=== PATIENT | male | born 1975 | race Caucasian/White ===

== ENCOUNTER 2018-07-30 11:50 | Emergency (ER) | payer MEDICAID ==
[~2018-07-30] VITALS: Ht 180.3 cm; Wt 99.0 kg
[2018-07-30 12:20] VITALS: BP 179/98
[2018-07-30] MEDS ORDERED: HYDROcodone/APAP 5/325 TABLET PO ONE (13:00)
[2018-07-30] MEDS ORDERED: HYDROcodone/APAP 5/325 TABLET ONE (13:02)
== END 2018-07-30 13:19 | disposition home or self-care (01) ==
LOC: ED 12:38
DX: H66.001 Acute suppurative otitis media without spontaneous rupture of ear drum, right ear (principal); H60.11 Cellulitis of right external ear; I10 Essential (primary) hypertension; E11.9 Type 2 diabetes mellitus without complications; F17.200 Nicotine dependence, unspecified, uncomplicated
CPT/HCPCS: 99283

== ENCOUNTER 2018-12-27 13:11 | Emergency (ER) | payer MEDICAID ==
[~2018-12-27] VITALS: Ht 180.3 cm; Wt 98.7 kg
[2018-12-27 13:25] VITALS: BP 152/102
== END 2018-12-27 15:19 | disposition home or self-care (01) ==
LOC: ED 15:13
DX: H66.91 Otitis media, unspecified, right ear (principal); E11.9 Type 2 diabetes mellitus without complications; I10 Essential (primary) hypertension
CPT/HCPCS: 99283

== ENCOUNTER 2018-12-28 16:52 | Emergency (ER) | payer MEDICAID | END 2018-12-28 17:05 | disposition left against medical advice (07) | LOC: ED 16:59 | DX: H92.09 Otalgia, unspecified ear (principal) | CPT/HCPCS: 99281 ==

== ENCOUNTER 2019-05-28 13:26 | Emergency (ER) | payer MEDICAID ==
[~2019-05-28] VITALS: Ht 180.3 cm; Wt 99.7 kg
[2019-05-28 13:46] VITALS: BP 129/85
== END 2019-05-28 14:52 | disposition home or self-care (01) ==
LOC: ED 14:00
DX: H66.001 Acute suppurative otitis media without spontaneous rupture of ear drum, right ear (principal); E11.22 Type 2 diabetes mellitus with diabetic chronic kidney disease; I12.9 Hypertensive chronic kidney disease with stage 1 through stage 4 chronic kidney disease, or unspecified chronic kidney disease; N18.9 Chronic kidney disease, unspecified; Z79.4 Long term (current) use of insulin
CPT/HCPCS: 99283

== ENCOUNTER 2019-06-27 03:32 | Emergency (ER) | payer MEDICAID | END 2019-06-27 04:15 | disposition left against medical advice (07) | LOC: ED 03:32 | DX: Z53.21 Procedure and treatment not carried out due to patient leaving prior to being seen by health care provider (principal) ==

== ENCOUNTER 2019-07-15 00:09 | Emergency (ER) | payer MEDICAID ==
[~2019-07-15] VITALS: Ht 180.3 cm; Wt 102.7 kg
[2019-07-15 00:16] VITALS: BP 166/102
[2019-07-15] MEDS ORDERED: HYDROcodone/APAP 5/325 TABLET PO STA (01:13)
[2019-07-15] MEDS ORDERED: HYDROcodone/APAP 5/325 TABLET ONE (01:22)
[2019-07-16] MEDS ORDERED: AMLO10TA8 PO (15:59)
[2019-07-16] MEDS ORDERED: INSU100I17 SQ-INSULIN (16:44)
[2019-07-16] MEDS ORDERED: BUPR300T49 PO (16:44)
[2019-07-16] MEDS ORDERED: LIRA0.6P2 SQ (16:44)
[2019-07-16] MEDS ORDERED: VALS160T3 PO (16:44)
[2019-07-16] MEDS ORDERED: LOSA100T14 PO (16:44)
[2019-07-16] MEDS ORDERED: ATOR40TA78 PO (16:44)
[2019-07-16] MEDS ORDERED: GABA300C10 PO (16:44)
[2019-07-16] MEDS ORDERED: ATOR10TA9 PO (16:44)
[2019-07-16] MEDS ORDERED: POTA20TA89 PO ×2 (16:44)
== END 2019-07-15 01:28 | disposition home or self-care (01) ==
LOC: ED 01:15
DX: H66.004 Acute suppurative otitis media without spontaneous rupture of ear drum, recurrent, right ear (principal); I12.9 Hypertensive chronic kidney disease with stage 1 through stage 4 chronic kidney disease, or unspecified chronic kidney disease; E11.22 Type 2 diabetes mellitus with diabetic chronic kidney disease
CPT/HCPCS: 99283

== ENCOUNTER 2019-07-16 15:11 | Inpatient (IN) | payer MEDICAID ==
[~2019-07-16] VITALS: Ht 180.3 cm; Wt 101.6 kg
--- NOTE | 2019-07-16 15:36 | NUR ---
PT TO ROOM. 10/10 R EAR PAIN. SOME YELLOW CRUSTY DRAINAGE, RED AND SWOLLEN. AFEBRILE. UNABLE TO EAT D/T PAIN. BGL 75 AT [facility], GOT OJ. TEDDY RHODES AT BEDSIDE FOR EVAL.
[2019-07-16] MEDS ORDERED: MORPHINE SULFATE 4 MG/ML, 1ML ONE ×2 (15:54→17:35)
[2019-07-16] MEDS: MORPHINE SULFATE 4 MG/ML, 1ML IVPush PRN ×3 (15:56→19:55)
[2019-07-16] MEDS ORDERED: AMLO10TA8 PO (15:59)
[2019-07-16] MEDS ORDERED: SODIUM CHLORIDE FLUSH 10ML SYR IVF ONE (16:00)
[2019-07-16] MEDS ORDERED: SODIUM CHLORIDE 0.9% 1,000ML IVBOLUS ONE (16:00)
[2019-07-16] MEDS ORDERED: AMLODIPINE 5 MG TABLET ONE (16:03)
[2019-07-16] MEDS ORDERED: AMLODIPINE 5 MG TABLET PO ONE (16:30)
[2019-07-16] MEDS ORDERED: SODIUM CHLORIDE FLUSH 10ML SYR IVF PRN (16:30)
[2019-07-16 16:31] LABS: BASOPHILS % (AUTO) 0 % (0-1); EOSINOPHILS # (AUTO) 0.15 x10^3/uL (0-0.4); EOSINOPHILS % (AUTO) 1 % (1-7); LYMPHOCYTES # (AUTO) 0.46 x10^3/uL (1-3.4); LYMPHOCYTES % (AUTO) 4 % (22-44); MD NO; MEAN CORPUSCULAR HEMOGLOBIN 28.9 pg (27.5-34.5); MEAN CORPUSCULAR HGB CONC 32.7 g/dL (33.2-36.2); MEAN CORPUSCULAR VOLUME 88.3 fL (81-97); MEAN PLATELET VOLUME 7.4 fL (7.4-10.4); MONOCYTES # (AUTO) 0.77 x10^3/uL (0.2-0.8); MONOCYTES % (AUTO) 7 % (2-9); NEUTROPHILS # (AUTO) 10.24 x10^3/uL (1.8-6.8); NEUTROPHILS % (AUTO) 88 % (42-75); PLATELET COUNT 260 x10^3/uL (130-400); RED BLOOD COUNT 5.27 x10^6/uL (4.38-5.82); RED CELL DISTRIBUTION WIDTH 13.9 % (9.4-14.8)
[2019-07-16 16:36] LABS: ALBUMIN 3.7 g/dL (3.4-5.0); ANION GAP 6 mmol/L (5-15); CALCIUM 9.4 mg/dL (8.5-10.1); CHLORIDE 102 mmol/L (98-107)
[2019-07-16 16:38] LABS: CREATININE 2.25 mg/dL (0.7-1.3)
[2019-07-16] MEDS ORDERED: VALS160T3 PO (16:44)
[2019-07-16] MEDS ORDERED: LIRA0.6P2 SQ (16:44)
[2019-07-16] MEDS ORDERED: GABA300C10 PO (16:44)
[2019-07-16] MEDS ORDERED: ATOR40TA78 PO (16:44)
[2019-07-16] MEDS ORDERED: POTA20TA89 PO ×2 (16:44)
[2019-07-16] MEDS ORDERED: INSU100I17 SQ-INSULIN (16:44)
[2019-07-16] MEDS ORDERED: ATOR10TA9 PO (16:44)
[2019-07-16] MEDS ORDERED: BUPR300T49 PO (16:44)
[2019-07-16] MEDS ORDERED: LOSA100T14 PO (16:44)
--- NOTE | 2019-07-16 16:45 | NUR ---
MRI FROM [facility] SHOWS POSSIBLE OSTEO. PROVIDER WAS IN ROOM FOR EVAL. PLAN FOR ADMIT.
[2019-07-16] MEDS: MEROPENEM 1 GM in SODIUM CHLORIDE 0.9% 100 ML IV SCH (17:31)
--- NOTE | 2019-07-16 17:40 | NUR ---
PAIN MEDS PER JUL. ERMD AWARE OF BP. ABX INFUSING. CALL RENETTA. ELA.
--- NOTE | 2019-07-16 17:55 | NUR ---
REPORT TO ROGELIO JOSEPH.
[2019-07-16] MEDS ORDERED: GLUCAGON 1 MG IM PRN (18:30)
[2019-07-16] MEDS ORDERED: DEXTROSE 50%, 50ML SYRINGE IVPush PRN (18:30)
[2019-07-16] MEDS ORDERED: DEXTROSE 4 GM TAB.CHEW PO PRN (18:30)
[2019-07-16] MEDS: OXYcodone 5 MG/5 ML ORAL.SOL UDC PO PRN ×3 (18:31→22:39)
[2019-07-16] MEDS: D5%-LACTATED RINGERS 1,000 ML IV SCH (19:32)
[2019-07-16] MEDS: POTASSIUM CHLORIDE 20 MEQ TAB.ER.PRT PO SCH (19:54)
[2019-07-16] MEDS: GABAPENTIN 300 MG CAPSULE PO SCH (19:54)
[2019-07-16] MEDS: ATORVASTATIN 10 MG TABLET PO SCH (19:54)
[2019-07-16] MEDS: INSULIN LISPRO 100 UNITS/ML, PEN SQ-INSULIN SCH (19:54)
[2019-07-16] MEDS: SODIUM CHLORIDE FLUSH 10ML SYR IVF SCH (19:55)
[2019-07-16 20:04] VITALS: BP 188/106
[2019-07-16] MEDS: INSULIN GLARGINE 100 UNITS/ML, PEN SQ-INSULIN SCH (21:00)
[2019-07-16] MEDS: hydrALAzine 20 MG/ML, 1ML IV PRN (21:20)
[2019-07-16 22:05] VITALS: BP 168/90
[2019-07-17] VITALS (8 sets, daily range): BP systolic 152–207; BP diastolic 81–125
[2019-07-17] MEDS: MEROPENEM 1 GM in SODIUM CHLORIDE 0.9% 100 ML IV SCH ×3 (01:17→17:05)
[2019-07-17] MEDS: MORPHINE SULFATE 4 MG/ML, 1ML IVPush PRN ×3 (01:17→11:31)
[2019-07-17] MEDS: hydrALAzine 20 MG/ML, 1ML IV PRN ×3 (01:26→17:15)
[2019-07-17] MEDS: OXYcodone 5 MG/5 ML ORAL.SOL UDC PO PRN ×4 (02:35→21:11)
[2019-07-17] MEDS: D5%-LACTATED RINGERS 1,000 ML IV SCH ×2 (03:47→15:54)
[2019-07-17] MEDS ORDERED: CIPROFLOXACIN DEXAMETHASONE EAR SUSP 7.5ML RIGHT EAR SCH (07:00)
[2019-07-17] MEDS ORDERED: DEXAMETHASONE 10 MG in SODIUM CHLORIDE 0.9% 50 ML IV SCH (07:00)
[2019-07-17] MEDS: DEXAMETHASONE 4 MG/ML, 1ML IV SCH ×3 (07:43→23:54)
[2019-07-17 08:30] LABS: BASOPHILS # (AUTO) 0.01 x10^3/uL (0-0.1); BASOPHILS % (AUTO) 0 % (0-1); EOSINOPHILS # (AUTO) 0.02 x10^3/uL (0-0.4); EOSINOPHILS % (AUTO) 0 % (1-7); LYMPHOCYTES # (AUTO) 0.54 x10^3/uL (1-3.4); LYMPHOCYTES % (AUTO) 5 % (22-44); MD NO; MEAN CORPUSCULAR HEMOGLOBIN 29.4 pg (27.5-34.5); MEAN CORPUSCULAR HGB CONC 33.5 g/dL (33.2-36.2); MEAN CORPUSCULAR VOLUME 87.6 fL (81-97); MEAN PLATELET VOLUME 7.1 fL (7.4-10.4); MONOCYTES # (AUTO) 0.84 x10^3/uL (0.2-0.8); MONOCYTES % (AUTO) 7 % (2-9); NEUTROPHILS % (AUTO) 88 % (42-75); PLATELET COUNT 255 x10^3/uL (130-400); RED BLOOD COUNT 5.14 x10^6/uL (4.38-5.82)
[2019-07-17 08:33] LABS: HCT (SEDRATE) 45.5 % (39.2-51.8)
[2019-07-17 08:41] LABS: ANION GAP 8 mmol/L (5-15); CALCIUM 9.6 mg/dL (8.5-10.1); CHLORIDE 104 mmol/L (98-107)
[2019-07-17 08:50] LABS: CREATININE 1.97 mg/dL (0.7-1.3)
[2019-07-17] MEDS ORDERED: LABETALOL 5MG/ML, 20ML IVPush ONE ×2 (09:00→11:00)
[2019-07-17] MEDS ORDERED: LORazepam 1MG TABLET PO PRN (09:00)
[2019-07-17] MEDS ORDERED: LORazepam 1MG TABLET PO ONE (09:00)
[2019-07-17] MEDS ORDERED: VALSARTAN 160 MG TABLET PO SCH (09:00)
[2019-07-17] MEDS: BUPROPION SR 150 MG TABLET PO SCH ×2 (09:16→21:12)
[2019-07-17] MEDS: INSULIN LISPRO 100 UNITS/ML, PEN SQ-INSULIN SCH ×4 (09:16→21:32)
[2019-07-17] MEDS: GABAPENTIN 300 MG CAPSULE PO SCH ×2 (09:17→21:12)
[2019-07-17] MEDS: POTASSIUM CHLORIDE 20 MEQ TAB.ER.PRT PO SCH ×2 (09:17→21:12)
[2019-07-17] MEDS: AMLODIPINE 10 MG TAB PO SCH (09:17)
[2019-07-17] MEDS: SODIUM CHLORIDE FLUSH 10ML SYR IVF SCH ×2 (09:18→21:14)
[2019-07-17] MEDS: CIPROFLOXACIN DEXAMETHASONE EAR SUSP 7.5ML RIGHT EAR SCH ×3 (11:29→21:11)
[2019-07-17] MEDS: HEPARIN 5,000 UNITS/ML, 1ML SQ SCH ×2 (13:00→21:13)
[2019-07-17] MEDS ORDERED: POTASSIUM CHLORIDE 20 MEQ PACKET PO SCH (17:00)
[2019-07-17 17:43] LABS: AMPHETAMINE SCREEN, URINE Negative (Negative); BARBITURATE SCREEN, URINE Negative (Negative); BENZODIAZEPINE SCREEN, URINE Negative (Negative); CANNABINOID SCREEN, URINE Positive (Negative); COCAINE SCREEN, URINE Negative (Negative); METHADONE SCREEN, URINE Negative (Negative); OPIATE SCREEN, URINE Positive (Negative)
[2019-07-17] MEDS: ATORVASTATIN 10 MG TABLET PO SCH (21:12)
[2019-07-17] MEDS: INSULIN GLARGINE 100 UNITS/ML, PEN SQ-INSULIN SCH (21:31)
[2019-07-18 00:01] VITALS: BP 158/92
[2019-07-18] MEDS: MEROPENEM 1 GM in SODIUM CHLORIDE 0.9% 100 ML IV SCH ×2 (00:58→08:53)
[2019-07-18] MEDS: HEPARIN 5,000 UNITS/ML, 1ML SQ SCH ×2 (05:00→13:00)
[2019-07-18] MEDS: D5%-LACTATED RINGERS 1,000 ML IV SCH (05:00)
[2019-07-18] MEDS: CIPROFLOXACIN DEXAMETHASONE EAR SUSP 7.5ML RIGHT EAR SCH ×3 (05:00→16:25)
[2019-07-18 05:04] VITALS: BP 165/102
[2019-07-18 05:07] VITALS: BP 144/102
[2019-07-18 05:39] LABS: BASOPHILS # (AUTO) 0.02 x10^3/uL (0-0.1); BASOPHILS % (AUTO) 0 % (0-1); EOSINOPHILS % (AUTO) 0 % (1-7); LYMPHOCYTES # (AUTO) 0.47 x10^3/uL (1-3.4); LYMPHOCYTES % (AUTO) 4 % (22-44); MD NO; MEAN CORPUSCULAR HEMOGLOBIN 28.9 pg (27.5-34.5); MEAN CORPUSCULAR HGB CONC 33.1 g/dL (33.2-36.2); MEAN CORPUSCULAR VOLUME 87.5 fL (81-97); MEAN PLATELET VOLUME 7.5 fL (7.4-10.4); MONOCYTES # (AUTO) 0.25 x10^3/uL (0.2-0.8); MONOCYTES % (AUTO) 2 % (2-9); NEUTROPHILS # (AUTO) 11.24 x10^3/uL (1.8-6.8); NEUTROPHILS % (AUTO) 94 % (42-75); PLATELET COUNT 274 x10^3/uL (130-400); RED BLOOD COUNT 5.07 x10^6/uL (4.38-5.82); RED CELL DISTRIBUTION WIDTH 13.5 % (9.4-14.8)
[2019-07-18 05:50] LABS: ANION GAP 7 mmol/L (5-15); CALCIUM 9.7 mg/dL (8.5-10.1); CHLORIDE 107 mmol/L (98-107); CREATININE 2.24 mg/dL (0.7-1.3)
[2019-07-18 08:49] VITALS: BP 167/99
[2019-07-18] MEDS: BUPROPION SR 150 MG TABLET PO SCH (08:54)
[2019-07-18] MEDS: AMLODIPINE 10 MG TAB PO SCH (08:55)
[2019-07-18] MEDS: POTASSIUM CHLORIDE 20 MEQ TAB.ER.PRT PO SCH (08:55)
[2019-07-18] MEDS: GABAPENTIN 300 MG CAPSULE PO SCH (08:55)
[2019-07-18] MEDS: SODIUM CHLORIDE FLUSH 10ML SYR IVF SCH (08:57)
[2019-07-18] MEDS ORDERED: VALSARTAN 160 MG TABLET PO SCH (09:00)
[2019-07-18] MEDS ORDERED: VALSARTAN 320 MG TABLET PO SCH (09:00)
[2019-07-18] MEDS: INSULIN LISPRO 100 UNITS/ML, PEN SQ-INSULIN SCH ×3 (09:09→16:23)
[2019-07-18] MEDS ORDERED: INSULIN LISPRO 100 UNIT/ML, 3ML VIAL IVPush SCH (11:00)
[2019-07-18] MEDS ORDERED: HYDR-3341 PO (15:05)
[2019-07-18] MEDS ORDERED: CIPR250T27 PO (15:05)
[2019-07-18] MEDS ORDERED: CIPR7.5D RIGHT EAR (15:05)
[2019-07-18 15:38] VITALS: BP 152/99
[2019-07-18] MEDS ORDERED: INSULIN LISPRO 100 UNIT/ML, 3ML VIAL SQ-INSULIN SCH (16:00)
== END 2019-07-18 17:00 | disposition home or self-care (01) | DRG 154 ==
LOC: ED 16:45 → EDIP 17:35 → 4WST 18:11 → DCLOUNGE 07-18 16:53
PROVIDERS: ADMIT Family Medicine; ATTEND Family Medicine
DX: H60.20 Malignant otitis externa, unspecified ear (principal); N18.6 End stage renal disease; H70.001 Acute mastoiditis without complications, right ear; E11.22 Type 2 diabetes mellitus with diabetic chronic kidney disease; H60.92 Unspecified otitis externa, left ear; H60.11 Cellulitis of right external ear; F41.9 Anxiety disorder, unspecified; H60.501 Unspecified acute noninfective otitis externa, right ear; I16.0 Hypertensive urgency; Z79.4 Long term (current) use of insulin; Z87.891 Personal history of nicotine dependence; Z90.49 Acquired absence of other specified parts of digestive tract
CPT/HCPCS: 36415; 99285; J7121; 80048; 80307; 82040; 82947; 82962; 83605; 85025; 85651; 86140; 87040; G0378; J1100; J1644; J2185; J0360; J1815; J1817; J2270; J7030

== ENCOUNTER 2020-01-17 10:46 | Emergency (ER) | payer MEDICAID ==
[~2020-01-17] VITALS: Ht 180.3 cm; Wt 105.4 kg
[~2020-01-17 10:46] MED LIST: AMLO10TA8 PO; ATOR10TA9 PO; ATOR40TA78 PO; BUPR300T49 PO; CIPR250T27 PO; CIPR7.5D RIGHT EAR; GABA300C10 PO; HYDR-3341 PO; INSU100I17 SQ-INSULIN; LIRA0.6P2 SQ; LOSA100T14 PO; POTA20TA89 PO; VALS160T3 PO
[2020-01-17 10:52] VITALS: BP 127/79
== END 2020-01-17 11:25 | disposition home or self-care (01) ==
LOC: ED 11:12
DX: H66.001 Acute suppurative otitis media without spontaneous rupture of ear drum, right ear (principal); E11.9 Type 2 diabetes mellitus without complications; I10 Essential (primary) hypertension; Z90.49 Acquired absence of other specified parts of digestive tract; Z87.891 Personal history of nicotine dependence
CPT/HCPCS: 99283

== ENCOUNTER 2020-02-09 01:11 | Inpatient (IN) | payer MEDICAID ==
[~2020-02-09] VITALS: Ht 180.3 cm; Wt 103.2 kg
[2020-02-09] MEDS ORDERED: SODIUM CHLORIDE 0.9% 1,000ML IVBOLUS ONE (01:30)
[2020-02-09] MEDS ORDERED: ONDANSETRON 2MG/ML, 2ML IVPush ONE (01:30)
[2020-02-09] MEDS ORDERED: MORPHINE SULFATE 4 MG/ML, 1ML IVPush PRN (01:30)
--- NOTE | 2020-02-09 01:32 | NUR ---
BIB EMS FROM HOME FOR N/V X3 DAYS PT STS HE HAS BEEN TAKING HIS INSULIN DESPITE POOR ORAL INTAKE. PER EMS PT HYPOTENSIVE WITH FSBS 60. PT ARRIVES WITH FLUIDS INFUSING FSBS HERE 83. DOMITILA, SR 80'S. PT CONNECTED TO ALL MONITORING
[2020-02-09 01:36] LABS: BASOPHILS # (AUTO) 0.03 x10^3/uL (0-0.1); BASOPHILS % (AUTO) 0 % (0-1); EOSINOPHILS # (AUTO) 0.13 x10^3/uL (0-0.4); EOSINOPHILS % (AUTO) 1 % (1-7); LYMPHOCYTES # (AUTO) 1.04 x10^3/uL (1-3.4); LYMPHOCYTES % (AUTO) 11 % (22-44); MD NO; MEAN CORPUSCULAR HEMOGLOBIN 26.9 pg (27.5-34.5); MEAN CORPUSCULAR HGB CONC 33.2 g/dL (33.2-36.2); MEAN PLATELET VOLUME 7.2 fL (7.4-10.4); MONOCYTES # (AUTO) 0.66 x10^3/uL (0.2-0.8); MONOCYTES % (AUTO) 7 % (2-9); NEUTROPHILS % (AUTO) 80 % (42-75); PLATELET COUNT 339 x10^3/uL (130-400); RED BLOOD COUNT 5.69 x10^6/uL (4.38-5.82); RED CELL DISTRIBUTION WIDTH 13.8 % (9.4-14.8)
[2020-02-09 01:47] LABS: ALANINE AMINOTRANSFERASE 24 U/L (12-78); ALBUMIN 3.5 g/dL (3.4-5.0); ANION GAP 10 mmol/L (5-15); CALCIUM 8.7 mg/dL (8.5-10.1); CHLORIDE 108 mmol/L (98-107)
[2020-02-09 01:50] LABS: ALKALINE PHOSPHATASE 114 U/L (45-117); BILIRUBIN,TOTAL 0.3 mg/dL (0.2-1.0); TOTAL PROTEIN 6.8 g/dL (6.4-8.2)
--- NOTE | 2020-02-09 02:00 | NUR ---
PT ATTEMPTED TO PROVIDE URINE SAMPLE BUT UNABLE TO AT THIS TIME
--- NOTE | 2020-02-09 02:40 | NUR ---
PT REMOVED BP CUFF STS IT IS UNCOMFORTABLE, PT EDUCATED THAT WE WILL NEED TO CHECK BP DURING HIS STAY. PT STS HE WILL AGREE TO BP CHECK BUT NOT KEEP CUFF ON FOR LONG PERIOD OF TIME HE FEELS ANXIOUS.
[2020-02-09] MEDS ORDERED: D5%-0.45% NACL 1,000 ML IV SCH (03:00)
--- NOTE | 2020-02-09 03:20 | NUR ---
FLUIDS STARTED PER DR WEATHERS AT THIS TIME.
--- NOTE | 2020-02-09 03:35 | NUR ---
[facility] AT BEDSIDE FOR ADMIT
--- NOTE | 2020-02-09 03:54 | NUR ---
PT RESTING ON GURNEY AWAITING ROOM UPSTAIRS REMAINS AT BEDSIDE
[2020-02-09] MEDS ORDERED: ACETAMINOPHEN 325 MG TABLET PO PRN (04:00)
[2020-02-09] MEDS ORDERED: ONDANSETRON 2MG/ML, 2ML IVPush PRN (04:00)
[2020-02-09] MEDS ORDERED: LABETALOL 5MG/ML, 20ML IVPush PRN (04:00)
[2020-02-09] MEDS ORDERED: DEXTROSE 50%, 50ML SYRINGE IVPush PRN (04:00)
[2020-02-09] MEDS ORDERED: GLUCAGON 1 MG IM PRN (04:00)
[2020-02-09] MEDS ORDERED: hydrALAzine 20 MG/ML, 1ML IVPush PRN (04:00)
[2020-02-09] MEDS ORDERED: ONDANSETRON ODT 4 MG PO PRN (04:00)
[2020-02-09] MEDS ORDERED: MAALOX/HYOSCYAMINE/LIDOCAINE 45 ML BTL PO ONE (04:00)
[2020-02-09] MEDS ORDERED: D5%-0.9% NACL 1,000 ML IV SCH (04:00)
[2020-02-09] MEDS ORDERED: TRAZODONE 50MG TABLET PO PRN (04:00)
[2020-02-09] MEDS ORDERED: BISACODYL 10 MG SUPP PR PRN (04:00)
[2020-02-09] MEDS ORDERED: POLYETHYLENE GLYCOL 17 GM PACKET PO PRN (04:00)
[2020-02-09] MEDS ORDERED: DEXTROSE 4 GM TAB.CHEW PO PRN (04:00)
[2020-02-09] MEDS ORDERED: DOCUSATE 100 MG CAPSULE PO PRN (04:00)
[2020-02-09] MEDS ORDERED: morphine SULFATE 10 MG/ML, 1ML IVPush PRN (04:00)
[2020-02-09] MEDS ORDERED: OMEPRAZOLE 20 MG CAPSULE.DR PO ONE (04:00)
[2020-02-09 04:30] VITALS: BP 103/63
--- NOTE | 2020-02-09 04:30 | NUR ---
REPORT TO GARCIA JOSEPH PT READY FOR TRANSPORT TO [facility]
[2020-02-09] MEDS ORDERED: VALS160T27 PO (05:48)
[2020-02-09] MEDS ORDERED: ESCI10TA PO (05:48)
[2020-02-09] MEDS ORDERED: LANS15CA5 PO (05:48)
[2020-02-09] MEDS ORDERED: TRIA1TAB3 PO (05:48)
[2020-02-09] MEDS ORDERED: HYDR50CA2 PO (05:48)
[2020-02-09] MEDS ORDERED: ALLO100T30 PO (05:48)
[2020-02-09] MEDS ORDERED: INSU100I13 SQ (05:48)
[2020-02-09] MEDS ORDERED: GABAPENTIN 300 MG PO (05:48)
[2020-02-09 06:02] VITALS: BP 106/63
[2020-02-09 08:06] VITALS: BP 94/55
[2020-02-09] MEDS: AMLODIPINE 10 MG TAB PO SCH (08:10)
[2020-02-09] MEDS: SODIUM CHLORIDE FLUSH 10ML SYR IVF SCH ×2 (09:00→20:54)
[2020-02-09] MEDS: GABAPENTIN 300 MG CAPSULE PO SCH ×2 (10:03→20:54)
[2020-02-09] MEDS: HEPARIN 5,000 UNITS/ML, 1ML SQ SCH ×2 (10:03→20:54)
[2020-02-09] MEDS: LACTATED RINGERS 1,000 ML IV SCH ×2 (10:06→18:00)
[2020-02-09 14:10] LABS: CHLORIDE,URINE RANDOM 63 mmol/L; POTASSIUM,URINE RANDOM 46 mmol/L; SODIUM,URINE RANDOM 60 mmol/L
[2020-02-09 14:35] VITALS: BP 120/71
[2020-02-09 15:47] LABS: ANION GAP 9 mmol/L (5-15); CALCIUM 8.3 mg/dL (8.5-10.1); CHLORIDE 106 mmol/L (98-107)
[2020-02-09 15:49] LABS: CREATININE 6.18 mg/dL (0.7-1.3)
[2020-02-09 18:57] VITALS: BP 103/67
[2020-02-09 20:53] VITALS: BP 127/66
[2020-02-10 01:26] VITALS: BP 120/75
[2020-02-10] MEDS: LACTATED RINGERS 1,000 ML IV SCH ×3 (03:36→20:00)
[2020-02-10 05:34] LABS: ALBUMIN 3.2 g/dL (3.4-5.0); CALCIUM 8.4 mg/dL (8.5-10.1); CHLORIDE 107 mmol/L (98-107)
[2020-02-10 05:39] LABS: ALANINE AMINOTRANSFERASE 22 U/L (12-78); ALKALINE PHOSPHATASE 104 U/L (45-117); ANION GAP 7 mmol/L (5-15); BILIRUBIN,TOTAL 0.3 mg/dL (0.2-1.0); CREATININE 5.14 mg/dL (0.7-1.3)
[2020-02-10 05:47] LABS: BASOPHILS # (AUTO) 0.03 x10^3/uL (0-0.1); BASOPHILS % (AUTO) 1 % (0-1); EOSINOPHILS # (AUTO) 0.24 x10^3/uL (0-0.4); EOSINOPHILS % (AUTO) 4 % (1-7); LYMPHOCYTES # (AUTO) 1.57 x10^3/uL (1-3.4); LYMPHOCYTES % (AUTO) 24 % (22-44); MD NO; MEAN CORPUSCULAR HEMOGLOBIN 26.7 pg (27.5-34.5); MEAN CORPUSCULAR HGB CONC 32.5 g/dL (33.2-36.2); MEAN PLATELET VOLUME 7.6 fL (7.4-10.4); MONOCYTES # (AUTO) 0.59 x10^3/uL (0.2-0.8); MONOCYTES % (AUTO) 9 % (2-9); NEUTROPHILS # (AUTO) 4.15 x10^3/uL (1.8-6.8); NEUTROPHILS % (AUTO) 63 % (42-75); PLATELET COUNT 224 x10^3/uL (130-400); RED BLOOD COUNT 4.72 x10^6/uL (4.38-5.82); RED CELL DISTRIBUTION WIDTH 13.9 % (9.4-14.8)
[2020-02-10] MEDS: HEPARIN 5,000 UNITS/ML, 1ML SQ SCH ×3 (06:16→20:46)
[2020-02-10] MEDS ORDERED: POTASSIUM CHLORIDE 20 MEQ TAB.ER.PRT PO ONE (06:30)
[2020-02-10] MEDS: GABAPENTIN 300 MG CAPSULE PO SCH ×2 (08:26→20:46)
[2020-02-10] MEDS: AMLODIPINE 10 MG TAB PO SCH (08:26)
[2020-02-10] MEDS: SODIUM CHLORIDE FLUSH 10ML SYR IVF SCH ×2 (08:27→20:46)
[2020-02-10 09:23] VITALS: BP 151/93
[2020-02-10 15:59] VITALS: BP 141/87
[2020-02-10] MEDS ORDERED: POTASSIUM CHLORIDE 20 MEQ TAB.ER.PRT PO SCH (17:00)
[2020-02-10 18:58] VITALS: BP 132/84
[2020-02-10 20:44] VITALS: BP 150/87
[2020-02-11 00:02] VITALS: BP 162/76
[2020-02-11 05:12] LABS: BASOPHILS # (AUTO) 0.03 x10^3/uL (0-0.1); BASOPHILS % (AUTO) 1 % (0-1); EOSINOPHILS # (AUTO) 0.14 x10^3/uL (0-0.4); EOSINOPHILS % (AUTO) 3 % (1-7); LYMPHOCYTES % (AUTO) 28 % (22-44); MD NO; MEAN CORPUSCULAR HGB CONC 34.5 g/dL (33.2-36.2); MEAN PLATELET VOLUME 7.5 fL (7.4-10.4); MONOCYTES # (AUTO) 0.51 x10^3/uL (0.2-0.8); MONOCYTES % (AUTO) 10 % (2-9); NEUTROPHILS # (AUTO) 3.17 x10^3/uL (1.8-6.8); NEUTROPHILS % (AUTO) 59 % (42-75); PLATELET COUNT 240 x10^3/uL (130-400); RED BLOOD COUNT 4.68 x10^6/uL (4.38-5.82); RED CELL DISTRIBUTION WIDTH 13.6 % (9.4-14.8)
[2020-02-11] MEDS: LACTATED RINGERS 1,000 ML IV SCH ×3 (05:13→21:27)
[2020-02-11] MEDS: HEPARIN 5,000 UNITS/ML, 1ML SQ SCH ×3 (05:13→21:29)
[2020-02-11 05:26] LABS: ANION GAP 7 mmol/L (5-15); CALCIUM 8.2 mg/dL (8.5-10.1); CHLORIDE 105 mmol/L (98-107)
[2020-02-11 05:29] LABS: CREATININE 3.48 mg/dL (0.7-1.3)
[2020-02-11 07:03] VITALS: BP 171/101
[2020-02-11] MEDS: POTASSIUM CHLORIDE 20 MEQ TAB.ER.PRT PO SCH ×2 (07:24→16:26)
[2020-02-11] MEDS: GABAPENTIN 300 MG CAPSULE PO SCH ×2 (07:24→21:29)
[2020-02-11] MEDS: AMLODIPINE 10 MG TAB PO SCH (07:25)
[2020-02-11] MEDS: SODIUM CHLORIDE FLUSH 10ML SYR IVF SCH ×2 (09:00→21:29)
[2020-02-11 14:19] VITALS: BP 168/101
[2020-02-11] MEDS ORDERED: POTASSIUM CHLORIDE 20 MEQ TAB.ER.PRT PO SCH (17:00)
[2020-02-11] MEDS: METOPROLOL TARTRATE 25 MG TAB PO SCH (18:12)
[2020-02-11 18:36] VITALS: BP 159/97
[2020-02-12 01:13] VITALS: BP 160/97
[2020-02-12 05:24] LABS: ANION GAP 7 mmol/L (5-15); CALCIUM 9.4 mg/dL (8.5-10.1); CHLORIDE 103 mmol/L (98-107); CREATININE 2.59 mg/dL (0.7-1.3)
[2020-02-12] MEDS: HEPARIN 5,000 UNITS/ML, 1ML SQ SCH ×2 (05:47→13:00)
[2020-02-12] MEDS: LACTATED RINGERS 1,000 ML IV SCH (05:47)
[2020-02-12] MEDS: METOPROLOL TARTRATE 25 MG TAB PO SCH (05:48)
[2020-02-12 07:13] VITALS: BP 152/95
[2020-02-12] MEDS: AMLODIPINE 10 MG TAB PO SCH (08:01)
[2020-02-12] MEDS: POTASSIUM CHLORIDE 20 MEQ TAB.ER.PRT PO SCH ×2 (08:01→16:07)
[2020-02-12] MEDS: GABAPENTIN 300 MG CAPSULE PO SCH (08:01)
[2020-02-12] MEDS: SODIUM CHLORIDE FLUSH 10ML SYR IVF SCH (08:02)
[2020-02-12] MEDS ORDERED: LOSARTAN 50MG TABLET PO SCH (09:30)
[2020-02-12 15:24] VITALS: BP 161/120
== END 2020-02-12 16:10 | disposition home or self-care (01) | DRG 641 ==
LOC: ED 03:23 → EDIP 03:39 → 3N 04:55
PROVIDERS: ADMIT Family Medicine; ATTEND Family Medicine
DX: E86.0 Dehydration (principal); N17.9 Acute kidney failure, unspecified; N18.4 Chronic kidney disease, stage 4 (severe); E11.43 Type 2 diabetes mellitus with diabetic autonomic (poly)neuropathy; E11.649 Type 2 diabetes mellitus with hypoglycemia without coma; I12.9 Hypertensive chronic kidney disease with stage 1 through stage 4 chronic kidney disease, or unspecified chronic kidney disease; K21.9 Gastro-esophageal reflux disease without esophagitis; E11.22 Type 2 diabetes mellitus with diabetic chronic kidney disease; E11.40 Type 2 diabetes mellitus with diabetic neuropathy, unspecified; E78.5 Hyperlipidemia, unspecified; E87.6 Hypokalemia; F12.90 Cannabis use, unspecified, uncomplicated; F41.9 Anxiety disorder, unspecified; J45.909 Unspecified asthma, uncomplicated; M10.9 Gout, unspecified; Z87.891 Personal history of nicotine dependence; Z90.49 Acquired absence of other specified parts of digestive tract; E66.9 Obesity, unspecified; F32.9 Major depressive disorder, single episode, unspecified; K31.84 Gastroparesis
CPT/HCPCS: 36415; 74176; 76770; 80048; 80053; 82306; 82436; 82570; 82962; 83036; 83690; 83735; 84100; 84133; 84156; 84300; 85025; 99285; G0378; J1644; J7030; J7120; Q0177

== ENCOUNTER 2020-07-21 10:03 | Outpatient (CLI) | payer MEDICAID ==
[~2020-07-21 10:03] MED LIST changes: +ALLO100T30 PO; +AMLO-211 PO; -AMLO10TA8 PO; +ESCI10TA97 PO; +GABAPENTIN 300 MG PO; +HYDR50CA2 PO; +INSU100I13 SQ; +LANS15CA5 PO; +TRIA1TAB3 PO; +VALS160T27 PO
== END 2020-07-21 23:59 | disposition home or self-care (01) ==
LOC: RAD 10:03
PROVIDERS: ATTEND Internal Medicine Gastroenterology
DX: T18.2XXA Foreign body in stomach, initial encounter (principal); R11.2 Nausea with vomiting, unspecified; K31.89 Other diseases of stomach and duodenum; K20.80 Other esophagitis without bleeding; R68.81 Early satiety
CPT/HCPCS: 78264; 82962; A9541

== ENCOUNTER 2020-08-03 23:54 | Inpatient (IN) | payer MEDICAID ==
[~2020-08-03] VITALS: Ht 182.9 cm; Wt 103.9 kg
[~2020-08-03 23:54] MED LIST changes: +ETOMIDATE 20 MG/10 ML ONE; +PROPOFOL 10 MG/ML, 100ML IV ONE; +ROCURONIUM 10MG/ML,5ML ONE
--- NOTE | 2020-08-04 00:04 | NUR ---
FLOAT RN: 20 ETIMODATE AND 60 FRANSICO GIVEN. CODE CALLED PT LOST PULSES -SEE CODE BLUE SHEET.
--- NOTE | 2020-08-04 00:06 | NUR ---
Code Mak called @ 1039
--- NOTE | 2020-08-04 00:20 | NUR ---
BLOOD CULTURES X 2 DRAWN AT 0020 PRIOR TO ANTIBIOTIC THERAPY INITIATION.
[2020-08-04 00:21] LABS: MEAN CORPUSCULAR HEMOGLOBIN 28.2 pg (27.5-34.5); MEAN CORPUSCULAR HGB CONC 32.6 g/dL (33.2-36.2); MEAN PLATELET VOLUME 7.4 fL (7.4-10.4); PLATELET COUNT 277 x10^3/uL (130-400); RED BLOOD COUNT 4.85 x10^6/uL (4.38-5.82); RED CELL DISTRIBUTION WIDTH 16.3 % (9.4-14.8)
[2020-08-04] MEDS ORDERED: GABA600T7 PO (00:23)
[2020-08-04] MEDS ORDERED: LANS15CA5 PO (00:23)
[2020-08-04] MEDS ORDERED: ATOR-2 PO (00:23)
[2020-08-04] MEDS ORDERED: METO25TA35 PO (00:23)
[2020-08-04] MEDS ORDERED: BUPR150T73 PO (00:23)
[2020-08-04] MEDS ORDERED: POTA10TA6 PO (00:23)
[2020-08-04] MEDS ORDERED: ALLO300T PO (00:23)
[2020-08-04] MEDS ORDERED: AMLO-211 PO (00:23)
[2020-08-04 00:30] LABS: ALANINE AMINOTRANSFERASE 63 U/L (12-78); ALBUMIN 3.6 g/dL (3.4-5.0); ANION GAP 10 mmol/L (5-15); CALCIUM 8.1 mg/dL (8.5-10.1); CHLORIDE 112 mmol/L (98-107); CREATININE 2.71 mg/dL (0.7-1.3)
[2020-08-04 00:35] LABS: ALKALINE PHOSPHATASE 163 U/L (45-117); BILIRUBIN,TOTAL 0.4 mg/dL (0.2-1.0); TOTAL PROTEIN 6.9 g/dL (6.4-8.2); TROPONIN I < 0.015 ng/mL (0.000-0.045)
[2020-08-04] MEDS ORDERED: PIPERACILLIN/TAZO/PMX 3.375GM 50 ML ONE (00:38)
[2020-08-04] MEDS: PROPOFOL 100 ML IV PRN ×8 (00:49→21:59)
[2020-08-04 00:52] LABS: MD YES
[2020-08-04 00:55] LABS: ANISOCYTOSIS 1+; BAND#(MANUAL) 0.19 x10^3/uL; BANDS%(MANUAL) 1 % (0-7); BASOS#(MANUAL) 0.19 x10^3/uL (0-0.1); BASOS% (MANUAL) 1 % (0-1); ECHINOCYTES 1+; EOS#(MANUAL) 0.38 x10^3/uL (0.0-0.4); EOS% (MANUAL) 2 % (1-7); LYMPH#(MANUAL) 3.44 x10^3/uL (1-3.4); LYMPHS% (MANUAL) 18 % (22-44); MONOS#(MANUAL) 1.72 x10^3/uL (0.3-2.7); MONOS% (MANUAL) 9 % (2-9); OVALOCYTES 1+; REACTIVE LYMPHS # (MANUAL) 0.38 x10^3/uL (0-0); REACTIVE LYMPHS % (MANUAL) 2 % (0-0); SEGS% (MANUAL) 67 % (42-75)
[2020-08-04 00:56] LABS: <PLATELET ESTIMATE> ADEQUATE; <PLT MORPHOLOGY> NORMAL PLT MORPH; PMNS WITH VACUOLES 1+
[2020-08-04 00:57] LABS: MICROSCOPIC INDICATED
[2020-08-04] MEDS ORDERED: PLEASE ENTER ALLERGIES MC SCH (01:00)
[2020-08-04] MEDS ORDERED: VANCOMYCIN 2,500 MG in SODIUM CHLORIDE 0.9% 500 ML IV ONE (01:00)
[2020-08-04] MEDS ORDERED: ETOMIDATE 20 MG/10 ML IVPush ONE (01:00)
[2020-08-04] MEDS ORDERED: VANCOMYCIN PER PHARMACY MC ONE (01:00)
[2020-08-04] MEDS ORDERED: ROCURONIUM 10 MG/ML,10ML IVPush ONE (01:00)
[2020-08-04] MEDS ORDERED: PIPERACILLIN/TAZO/PMX 3.375GM 50 ML IVPB ONE (01:00)
--- NOTE | 2020-08-04 01:14 | NUR ---
PATIENT IN STABLE CONDITION. VITAL SIGNS STABLE. PATIENT RESPONDING TO SEDATION DRIP WELL. NO CHANGE IN PATIETN STATUS AT THIS TIME. PATIENT IS ONE-ON-ONE CARE FROM DOOR TIME.
[2020-08-04] MEDS ORDERED: SODIUM CHLORIDE 0.9% 1,000ML IVBOLUS ONE ×3 (01:30→10:00)
[2020-08-04] MEDS ORDERED: OMNIPAQUE 350 MG/ML, 100ML BOTTLE ONE (01:33)
--- NOTE | 2020-08-04 01:36 | NUR ---
SEDATION MEDICATION INCREASED RELATED TO INCREASE IN VITAL SIGNS, INDICATING PT IS UNCOMFORTABLE. BLOOD PRESSURE HAS INCREASED, WILL TREND DOWNWARD WITH IMPROVED COMFORT LEVEL
--- NOTE | 2020-08-04 01:54 | NUR ---
1000ML OF CLEAR YELLOW URINE EMPTIED FROM INDWELLING URINARY CATH
[2020-08-04 02:01] LABS: SALICYLATE LEVEL 2.4 mg/dL (2.8-20.0)
[2020-08-04 02:03] LABS: AMPHETAMINE SCREEN, URINE Positive (Negative); BARBITURATE SCREEN, URINE Negative (Negative); BENZODIAZEPINE SCREEN, URINE Negative (Negative); CANNABINOID SCREEN, URINE Positive (Negative); COCAINE SCREEN, URINE Negative (Negative); METHADONE SCREEN, URINE Negative (Negative); OPIATE SCREEN, URINE Negative (Negative)
--- NOTE | 2020-08-04 02:15 | NUR ---
TITRATING SEDATION DRIP ACCORDING TO POLICY
[2020-08-04] MEDS ORDERED: FENTANYL PF 100 MCG/2ML ONE ×2 (02:24→02:44)
--- NOTE | 2020-08-04 02:27 | NUR ---
PATIENT IS NOT ADEQUATELY SEDATED AT THIS POINT. PATIENT'S VITAL SIGNS AND SPONTANIOUS MOVEMENTS INDICATE THAT PATIENT REQUIRES ADDITIONAL SEDATION MEDICATION. PATIENT GIVEN IVP FENTANYL 50MCG PER VERBAL ORDER MD LEVI. PATIENT'S VITAL SIGNS ARE STABLE. PROPOFOL DRIP IS CURRENTLY BEING TITRATED TO IMPROVE OPTIMAL SEDATION OUTCOMES. WILL CONTINUE TO MONITOR PATIENT'S FAMILY IS AT BEDSIDE WITH PATIENT. UPDATED ON PLAN OF CARE. [facility] ADMITTING MD AT BEDSIDE FOR EVALUATION.
[2020-08-04] MEDS ORDERED: LIDOCAINE-MPF 1%, 2ML ENDO PRN (03:00)
[2020-08-04] MEDS ORDERED: FAMOTIDINE 20 MG/2 ML IV SCH (03:00)
[2020-08-04] MEDS: FENTANYL PF 1,000 MCG in SODIUM CHLORIDE 0.9% 80 ML IV PRN ×2 (03:00→20:42)
[2020-08-04] MEDS ORDERED: SENNA/DOCUSATE TABLET NG PRN (03:00)
[2020-08-04] MEDS ORDERED: BISACODYL 10 MG SUPP PR PRN (03:00)
[2020-08-04] MEDS ORDERED: FENTANYL PF 100 MCG/2ML IVPush ONE (03:00)
[2020-08-04] MEDS ORDERED: SENNA 176 MG/5 ML ORAL SOL NG PRN (03:00)
[2020-08-04] MEDS ORDERED: PHARMACY MAY ADJ FOR RENAL FX MC SCH (03:00)
[2020-08-04] MEDS ORDERED: ONDANSETRON 2MG/ML, 2ML IV PRN (03:00)
[2020-08-04] MEDS ORDERED: LACTULOSE 20 GM/30 ML UDC NG PRN (03:00)
--- NOTE | 2020-08-04 03:00 | NUR ---
TITRATION OF SEDATION DRIPS TO IMPROVE BLOOD PRESSURE. WILL CONTINUE TO MONITOR. DEEP SUCTION PERFORMED RELATED TO INCREASE IN ORAL SECRETIONS.
--- NOTE | 2020-08-04 03:26 | NUR ---
PATIENT RESPONDING WELL TO FENTANYL DRIP SEDATION. PATIENT'S FAMILY REMAINS AT BEDSIDE. PATIENT WILL BE TRANSPORTED ONCE BLOOD PRESSURE HAS IMPROVED.
[2020-08-04 03:31] VITALS: BP 108/70
[2020-08-04] MEDS ORDERED: AMIODARONE 50 MG/ML, 3ML ONE (04:11)
[2020-08-04] MEDS ORDERED: EPINEPHRINE SYRINGE 0.1 MG/ML, 10ML ONE (04:11)
[2020-08-04] MEDS ORDERED: KSCALE TO 4.5 IV SCH (05:00)
[2020-08-04] MEDS ORDERED: PHARMACOKINETIC MONITORING MC PRN (05:00)
[2020-08-04] MEDS ORDERED: PIPERACILLIN/TAZO/PMX 2.25GM 50 ML IVPB SCH (05:00)
[2020-08-04] MEDS ORDERED: VANCOMYCIN PER PHARMACY MC PRN (05:00)
[2020-08-04] MEDS: HEPARIN 5,000 UNITS/ML, 1ML SQ SCH ×3 (05:15→20:15)
[2020-08-04 06:44] LABS: TROPONIN I 0.038 ng/mL (0.000-0.045)
[2020-08-04] MEDS ORDERED: INSULIN LISPRO 100 UNITS/ML, PEN SQ-INSULIN SCH (07:00)
[2020-08-04] MEDS: PANTOPRAZOLE 40 MG IV IVPush SCH (08:41)
[2020-08-04] MEDS: INSULIN LISPRO 100 UNITS/ML, PEN SQ-INSULIN SCH ×3 (09:07→20:49)
[2020-08-04] MEDS ORDERED: DEXTROSE 50%, 50ML SYRINGE ONE (09:11)
[2020-08-04] MEDS ORDERED: DEXTROSE 50%, 50ML SYRINGE IVPush ONE (09:30)
[2020-08-04] MEDS ORDERED: DEXTROSE 10% 1,000 ML IV SCH ×2 (09:30→09:31)
[2020-08-04] MEDS: CEFTRIAXONE PMX 2GM/50ML 50 ML IVPB SCH (10:38)
[2020-08-04] MEDS: AZITHROMYCIN 500 MG in SODIUM CHLORIDE 0.9% 250 ML IV SCH (10:39)
[2020-08-04] MEDS: D5%-0.9% NACL 1,000 ML IV SCH ×3 (10:39→22:58)
[2020-08-04] MEDS: ACETYLCYSTEINE 600 MG CAPSULE PO SCH ×2 (10:39→20:16)
--- NOTE | 2020-08-04 12:02 | NUR ---
Tube Feed: Promote: on propofol:80 ml/hr, off propofol: 90 ml/hr Addendum: 08/04/20 at [address] Amended: Links added.
[2020-08-04] MEDS ORDERED: VANCOMYCIN 2,000 MG in SODIUM CHLORIDE 0.9% 500 ML IV SCH (21:00)
[2020-08-05] MEDS: PROPOFOL 100 ML IV PRN ×9 (01:28→23:21)
[2020-08-05] MEDS: INSULIN LISPRO 100 UNITS/ML, PEN SQ-INSULIN SCH ×4 (03:00→21:03)
[2020-08-05] MEDS: HEPARIN 5,000 UNITS/ML, 1ML SQ SCH ×3 (04:01→21:16)
[2020-08-05 04:29] LABS: BASOPHILS % (AUTO) 1 % (0-1); EOSINOPHILS % (AUTO) 3 % (1-7); LYMPHOCYTES % (AUTO) 11 % (22-44); MEAN CORPUSCULAR HEMOGLOBIN 28.8 pg (27.5-34.5); MEAN CORPUSCULAR HGB CONC 33.7 g/dL (33.2-36.2); MEAN PLATELET VOLUME 7.6 fL (7.4-10.4); MONOCYTES % (AUTO) 9 % (2-9); NEUTROPHILS % (AUTO) 76 % (42-75); PLATELET COUNT 156 x10^3/uL (130-400); RED BLOOD COUNT 3.56 x10^6/uL (4.38-5.82); RED CELL DISTRIBUTION WIDTH 16.4 % (9.4-14.8)
[2020-08-05 04:39] LABS: ANION GAP 4 mmol/L (5-15); CALCIUM 7.9 mg/dL (8.5-10.1); CHLORIDE 114 mmol/L (98-107); CREATININE 2.75 mg/dL (0.7-1.3)
[2020-08-05 04:42] LABS: MD NO
[2020-08-05] MEDS: FENTANYL PF 1,000 MCG in SODIUM CHLORIDE 0.9% 80 ML IV PRN ×2 (05:43→17:49)
[2020-08-05] MEDS: D5%-0.9% NACL 1,000 ML IV SCH (05:43)
[2020-08-05] MEDS ORDERED: POTASSIUM CHLORIDE 40 MEQ in SODIUM CHLORIDE 0.9% 500 ML IV ONE (08:30)
[2020-08-05] MEDS ORDERED: FUROSEMIDE 20 MG/2 ML IV ONE (08:30)
[2020-08-05] MEDS ORDERED: POTASSIUM CHLORIDE 10% 40 MEQ/30 ML UDC PO ONE (09:00)
[2020-08-05] MEDS: PANTOPRAZOLE 40 MG IV IVPush SCH (09:23)
[2020-08-05] MEDS: ACETYLCYSTEINE 600 MG CAPSULE PO SCH ×2 (09:23→21:16)
[2020-08-05] MEDS: CEFTRIAXONE PMX 2GM/50ML 50 ML IVPB SCH (10:20)
--- NOTE | 2020-08-05 10:56 | NUR ---
Vital AF advance slowly to goal of 65 ml/hr on propofol, 75 ml/hr off propofol. advance by 10 ml/hr every 10-12 hours as tolerated Addendum: 08/05/20 at [address] Amended: Links added.
[2020-08-05] MEDS: AZITHROMYCIN 500 MG in SODIUM CHLORIDE 0.9% 250 ML IV SCH (11:07)
[2020-08-05 20:30] LABS: BASOPHILS % (AUTO) 1 % (0-1); EOSINOPHILS % (AUTO) 3 % (1-7); LYMPHOCYTES % (AUTO) 13 % (22-44); MEAN CORPUSCULAR HEMOGLOBIN 28.2 pg (27.5-34.5); MEAN CORPUSCULAR HGB CONC 32.9 g/dL (33.2-36.2); MEAN PLATELET VOLUME 7.5 fL (7.4-10.4); MONOCYTES % (AUTO) 9 % (2-9); NEUTROPHILS % (AUTO) 74 % (42-75); PLATELET COUNT 174 x10^3/uL (130-400); RED BLOOD COUNT 3.55 x10^6/uL (4.38-5.82); RED CELL DISTRIBUTION WIDTH 16.9 % (9.4-14.8)
[2020-08-05 20:31] LABS: MD NO
[2020-08-06] MEDS: FENTANYL PF 2,500 MCG in SODIUM CHLORIDE 0.9% 200 ML IV PRN ×2 (01:50→19:00)
[2020-08-06] MEDS: PROPOFOL 100 ML IV PRN ×8 (02:24→23:06)
[2020-08-06] MEDS: INSULIN LISPRO 100 UNITS/ML, PEN SQ-INSULIN SCH ×4 (02:55→20:13)
[2020-08-06 04:29] LABS: BASOPHILS % (AUTO) 1 % (0-1); EOSINOPHILS % (AUTO) 4 % (1-7); LYMPHOCYTES % (AUTO) 13 % (22-44); MEAN CORPUSCULAR HEMOGLOBIN 28.5 pg (27.5-34.5); MEAN CORPUSCULAR HGB CONC 33.1 g/dL (33.2-36.2); MEAN PLATELET VOLUME 7.7 fL (7.4-10.4); MONOCYTES % (AUTO) 9 % (2-9); NEUTROPHILS % (AUTO) 74 % (42-75); PLATELET COUNT 162 x10^3/uL (130-400); RED BLOOD COUNT 3.49 x10^6/uL (4.38-5.82); RED CELL DISTRIBUTION WIDTH 16.5 % (9.4-14.8)
[2020-08-06 04:32] LABS: MD NO
[2020-08-06 04:43] LABS: ALBUMIN 2.6 g/dL (3.4-5.0); ANION GAP 7 mmol/L (5-15); CALCIUM 8.3 mg/dL (8.5-10.1); CHLORIDE 116 mmol/L (98-107)
[2020-08-06 04:46] LABS: ALANINE AMINOTRANSFERASE 38 U/L (12-78); ALKALINE PHOSPHATASE 107 U/L (45-117); BILIRUBIN,TOTAL 0.3 mg/dL (0.2-1.0); CREATININE 2.58 mg/dL (0.7-1.3); TOTAL PROTEIN 5.4 g/dL (6.4-8.2)
[2020-08-06] MEDS: HEPARIN 5,000 UNITS/ML, 1ML SQ SCH ×3 (05:13→20:13)
[2020-08-06] MEDS ORDERED: FUROSEMIDE 20 MG/2 ML ONE (09:38)
[2020-08-06] MEDS: PANTOPRAZOLE 40 MG IV IVPush SCH (09:40)
[2020-08-06] MEDS: ACETYLCYSTEINE 600 MG CAPSULE PO SCH ×2 (09:40→20:13)
[2020-08-06] MEDS ORDERED: FUROSEMIDE 20 MG/2 ML IV ONE (10:00)
[2020-08-06] MEDS ORDERED: POTASSIUM CHLORIDE 20 MEQ PACKET PO ONE (10:00)
[2020-08-06] MEDS: CEFTRIAXONE PMX 2GM/50ML 50 ML IVPB SCH (10:13)
[2020-08-06] MEDS: AZITHROMYCIN 500 MG in SODIUM CHLORIDE 0.9% 250 ML IV SCH (10:13)
[2020-08-06] MEDS ORDERED: MIDAZOLAM 1 MG/ML, 2ML ONE (10:39)
[2020-08-06] MEDS ORDERED: MIDAZOLAM 1 MG/ML, 2ML IVPush ONE (11:00)
[2020-08-06] MEDS ORDERED: ETOMIDATE 20 MG/10 ML ONE (16:04)
[2020-08-07] MEDS: PROPOFOL 100 ML IV PRN ×4 (01:51→11:08)
[2020-08-07] MEDS: INSULIN LISPRO 100 UNITS/ML, PEN SQ-INSULIN SCH ×4 (02:45→20:19)
[2020-08-07 04:37] LABS: BASOPHILS % (AUTO) 1 % (0-1); EOSINOPHILS % (AUTO) 3 % (1-7); LYMPHOCYTES % (AUTO) 9 % (22-44); MEAN CORPUSCULAR HEMOGLOBIN 28.5 pg (27.5-34.5); MEAN CORPUSCULAR HGB CONC 33.2 g/dL (33.2-36.2); MEAN PLATELET VOLUME 7.4 fL (7.4-10.4); MONOCYTES % (AUTO) 9 % (2-9); NEUTROPHILS % (AUTO) 78 % (42-75); PLATELET COUNT 207 x10^3/uL (130-400); RED BLOOD COUNT 3.83 x10^6/uL (4.38-5.82); RED CELL DISTRIBUTION WIDTH 16.4 % (9.4-14.8)
[2020-08-07 04:38] LABS: MD NO
[2020-08-07] MEDS: HEPARIN 5,000 UNITS/ML, 1ML SQ SCH ×3 (04:42→20:19)
[2020-08-07 04:51] LABS: ANION GAP 5 mmol/L (5-15); CALCIUM 8.9 mg/dL (8.5-10.1); CHLORIDE 115 mmol/L (98-107); CREATININE 2.32 mg/dL (0.7-1.3); TRIGLYCERIDES 441 mg/dL (50-200)
[2020-08-07] MEDS: FENTANYL PF 2,500 MCG in SODIUM CHLORIDE 0.9% 200 ML IV PRN ×2 (05:56→17:22)
[2020-08-07] MEDS ORDERED: MIDAZOLAM HCL 50 MG in SODIUM CHLORIDE 0.9% 40 ML IV PRN (08:30)
[2020-08-07] MEDS: PANTOPRAZOLE 40 MG IV IVPush SCH (08:40)
[2020-08-07] MEDS: CEFTRIAXONE PMX 2GM/50ML 50 ML IVPB SCH (08:59)
[2020-08-07] MEDS ORDERED: MIDAZOLAM 1 MG/ML, 5ML IV ONE (09:00)
[2020-08-07] MEDS: RISPERIDONE 0.5 MG TABLET PO SCH ×2 (11:07→20:19)
[2020-08-07] MEDS: VALSARTAN 160 MG TABLET PO SCH (12:19)
[2020-08-07] MEDS: MIDAZOLAM HCL 100 MG in SODIUM CHLORIDE 0.9% 80 ML IV PRN (17:22)
[2020-08-08] MEDS: PROPOFOL 100 ML IV PRN ×3 (01:05→22:55)
[2020-08-08] MEDS: MIDAZOLAM HCL 100 MG in SODIUM CHLORIDE 0.9% 80 ML IV PRN ×4 (01:25→21:41)
[2020-08-08] MEDS: INSULIN LISPRO 100 UNITS/ML, PEN SQ-INSULIN SCH ×4 (03:54→21:46)
[2020-08-08 04:14] LABS: BASOPHILS % (AUTO) 1 % (0-1); EOSINOPHILS % (AUTO) 4 % (1-7); LYMPHOCYTES % (AUTO) 8 % (22-44); MEAN CORPUSCULAR HEMOGLOBIN 28.2 pg (27.5-34.5); MEAN CORPUSCULAR HGB CONC 33.1 g/dL (33.2-36.2); MEAN PLATELET VOLUME 7.3 fL (7.4-10.4); MONOCYTES % (AUTO) 8 % (2-9); NEUTROPHILS % (AUTO) 79 % (42-75); PLATELET COUNT 201 x10^3/uL (130-400); RED BLOOD COUNT 3.61 x10^6/uL (4.38-5.82); RED CELL DISTRIBUTION WIDTH 16.1 % (9.4-14.8)
[2020-08-08 04:15] LABS: MD NO
[2020-08-08 04:22] LABS: ANION GAP 5 mmol/L (5-15); CALCIUM 8.5 mg/dL (8.5-10.1); CHLORIDE 117 mmol/L (98-107); CREATININE 2.17 mg/dL (0.7-1.3)
[2020-08-08] MEDS: FENTANYL PF 2,500 MCG in SODIUM CHLORIDE 0.9% 200 ML IV PRN ×3 (04:31→14:28)
[2020-08-08] MEDS: HEPARIN 5,000 UNITS/ML, 1ML SQ SCH ×3 (05:13→21:41)
[2020-08-08] MEDS: VALSARTAN 160 MG TABLET PO SCH (09:24)
[2020-08-08] MEDS: RISPERIDONE 0.5 MG TABLET PO SCH ×2 (09:25→21:42)
[2020-08-08] MEDS: AMLODIPINE 5 MG TABLET PO SCH (09:25)
[2020-08-08] MEDS: PANTOPRAZOLE 40 MG IV IVPush SCH (09:26)
[2020-08-08] MEDS: PIPERACILLIN/TAZO/PMX 3.375GM 50 ML IV SCH ×3 (10:00→21:46)
[2020-08-09] MEDS: FENTANYL PF 2,500 MCG in SODIUM CHLORIDE 0.9% 200 ML IV PRN ×3 (00:53→21:01)
[2020-08-09] MEDS: PIPERACILLIN/TAZO/PMX 3.375GM 50 ML IV SCH ×4 (03:52→21:00)
[2020-08-09] MEDS: INSULIN LISPRO 100 UNITS/ML, PEN SQ-INSULIN SCH ×4 (03:52→21:01)
[2020-08-09 04:06] LABS: ANION GAP 6 mmol/L (5-15); CALCIUM 8.6 mg/dL (8.5-10.1); CHLORIDE 118 mmol/L (98-107); CREATININE 2.07 mg/dL (0.7-1.3)
[2020-08-09 04:08] LABS: BASOPHILS % (AUTO) 1 % (0-1); EOSINOPHILS % (AUTO) 5 % (1-7); LYMPHOCYTES % (AUTO) 10 % (22-44); MEAN CORPUSCULAR HEMOGLOBIN 28.3 pg (27.5-34.5); MEAN CORPUSCULAR HGB CONC 32.8 g/dL (33.2-36.2); MEAN PLATELET VOLUME 7.5 fL (7.4-10.4); MONOCYTES % (AUTO) 8 % (2-9); NEUTROPHILS % (AUTO) 76 % (42-75); PLATELET COUNT 186 x10^3/uL (130-400); RED BLOOD COUNT 3.54 x10^6/uL (4.38-5.82)
[2020-08-09 04:25] LABS: MD NO
[2020-08-09] MEDS: HEPARIN 5,000 UNITS/ML, 1ML SQ SCH ×3 (05:47→21:00)
[2020-08-09] MEDS: PROPOFOL 100 ML IV PRN ×4 (05:47→23:14)
[2020-08-09] MEDS: PANTOPRAZOLE 40 MG IV IVPush SCH (09:08)
[2020-08-09] MEDS: VALSARTAN 160 MG TABLET PO SCH (09:09)
[2020-08-09] MEDS: RISPERIDONE 0.5 MG TABLET PO SCH ×2 (09:09→21:00)
[2020-08-09] MEDS: AMLODIPINE 5 MG TABLET PO SCH (09:10)
[2020-08-09] MEDS ORDERED: FUROSEMIDE 40 MG/4 ML IV ONE (09:30)
[2020-08-09] MEDS: MIDAZOLAM HCL 100 MG in SODIUM CHLORIDE 0.9% 80 ML IV PRN ×2 (09:59→19:27)
[2020-08-10] MEDS: PROPOFOL 100 ML IV PRN ×3 (01:41→09:21)
[2020-08-10] MEDS: PIPERACILLIN/TAZO/PMX 3.375GM 50 ML IV SCH ×3 (03:35→20:28)
[2020-08-10] MEDS: INSULIN LISPRO 100 UNITS/ML, PEN SQ-INSULIN SCH ×4 (03:36→20:50)
[2020-08-10 04:20] LABS: BASOPHILS % (AUTO) 1 % (0-1); EOSINOPHILS % (AUTO) 6 % (1-7); LYMPHOCYTES % (AUTO) 13 % (22-44); MD NO; MEAN CORPUSCULAR HEMOGLOBIN 28.2 pg (27.5-34.5); MEAN CORPUSCULAR HGB CONC 33.2 g/dL (33.2-36.2); MEAN PLATELET VOLUME 7.4 fL (7.4-10.4); MONOCYTES % (AUTO) 9 % (2-9); NEUTROPHILS % (AUTO) 71 % (42-75); PLATELET COUNT 234 x10^3/uL (130-400); RED BLOOD COUNT 3.57 x10^6/uL (4.38-5.82)
[2020-08-10 04:31] LABS: ANION GAP 6 mmol/L (5-15); CALCIUM 8.7 mg/dL (8.5-10.1); CHLORIDE 115 mmol/L (98-107); CREATININE 2.28 mg/dL (0.7-1.3); TRIGLYCERIDES 376 mg/dL (50-200)
[2020-08-10] MEDS: HEPARIN 5,000 UNITS/ML, 1ML SQ SCH ×3 (05:17→20:49)
[2020-08-10] MEDS: MIDAZOLAM HCL 100 MG in SODIUM CHLORIDE 0.9% 80 ML IV PRN ×2 (08:15→20:28)
[2020-08-10] MEDS: RISPERIDONE 0.5 MG TABLET PO SCH ×2 (09:07→21:14)
[2020-08-10] MEDS: VALSARTAN 160 MG TABLET PO SCH (10:19)
[2020-08-10] MEDS: FENTANYL PF 2,500 MCG in SODIUM CHLORIDE 0.9% 200 ML IV PRN ×2 (10:19→20:29)
[2020-08-10] MEDS: AMLODIPINE 10 MG TAB PO SCH (10:20)
[2020-08-10] MEDS: PANTOPRAZOLE 40 MG IV IVPush SCH (10:20)
[2020-08-10] MEDS: FUROSEMIDE 40 MG/4 ML IV SCH ×2 (10:22→20:49)
[2020-08-10] MEDS: PROPOFOL IV PRN (12:35)
[2020-08-11] MEDS: PIPERACILLIN/TAZO/PMX 3.375GM 50 ML IV SCH ×4 (00:42→19:45)
[2020-08-11] MEDS: PROPOFOL IV PRN (00:44)
[2020-08-11] MEDS: INSULIN LISPRO 100 UNITS/ML, PEN SQ-INSULIN SCH ×4 (02:30→20:22)
[2020-08-11] MEDS: FENTANYL PF 2,500 MCG in SODIUM CHLORIDE 0.9% 200 ML IV PRN ×2 (04:36→15:58)
[2020-08-11 04:46] LABS: BASOPHILS % (AUTO) 1 % (0-1); EOSINOPHILS % (AUTO) 6 % (1-7); LYMPHOCYTES % (AUTO) 15 % (22-44); MEAN CORPUSCULAR HEMOGLOBIN 28.7 pg (27.5-34.5); MEAN CORPUSCULAR HGB CONC 33.4 g/dL (33.2-36.2); MEAN PLATELET VOLUME 7.1 fL (7.4-10.4); MONOCYTES % (AUTO) 8 % (2-9); NEUTROPHILS % (AUTO) 70 % (42-75); PLATELET COUNT 255 x10^3/uL (130-400); RED BLOOD COUNT 3.51 x10^6/uL (4.38-5.82); RED CELL DISTRIBUTION WIDTH 15.8 % (9.4-14.8)
[2020-08-11 04:55] LABS: MD NO
[2020-08-11 05:00] LABS: ANION GAP 7 mmol/L (5-15); CALCIUM 8.9 mg/dL (8.5-10.1); CHLORIDE 114 mmol/L (98-107)
[2020-08-11 05:01] LABS: CREATININE 2.64 mg/dL (0.7-1.3)
[2020-08-11] MEDS: HEPARIN 5,000 UNITS/ML, 1ML SQ SCH ×3 (05:56→20:14)
[2020-08-11] MEDS: MIDAZOLAM HCL 100 MG in SODIUM CHLORIDE 0.9% 80 ML IV PRN ×2 (05:56→17:33)
[2020-08-11] MEDS: PANTOPRAZOLE 40 MG IV IVPush SCH (10:12)
[2020-08-11] MEDS: AMLODIPINE 10 MG TAB PO SCH (10:13)
[2020-08-11] MEDS: VALSARTAN 160 MG TABLET PO SCH (10:13)
[2020-08-11] MEDS: RISPERIDONE 0.5 MG TABLET PO SCH ×2 (10:14→20:14)
[2020-08-11] MEDS: GABAPENTIN 300 MG CAPSULE PO SCH ×2 (12:05→20:14)
[2020-08-11] MEDS: FUROSEMIDE 40 MG/4 ML IV SCH (13:06)
[2020-08-11] MEDS: ESCITALOPRAM 10MG TABLET PO SCH (13:06)
[2020-08-11] MEDS: LABETALOL 5MG/ML, 20ML IVPush PRN (13:10)
--- NOTE | 2020-08-11 13:45 | NUR ---
TF recommendations (reassessed 08/11): Vital HP @80mL/hr (on propofol), @90mL/hr (OFF propofol) Addendum: 08/11/20 at [address] Amended: Links added.
[2020-08-11] MEDS: METOPROLOL TARTRATE 25 MG TAB PO SCH (20:14)
[2020-08-11] MEDS ORDERED: INSULIN GLARGINE 100 UNITS/ML, PEN SQ-INSULIN SCH (21:00)
[2020-08-12] MEDS: PIPERACILLIN/TAZO/PMX 3.375GM 50 ML IV SCH ×2 (00:34→06:04)
[2020-08-12] MEDS: FUROSEMIDE 40 MG/4 ML IV SCH ×3 (00:34→19:58)
[2020-08-12] MEDS: FENTANYL PF 2,500 MCG in SODIUM CHLORIDE 0.9% 200 ML IV PRN (01:57)
[2020-08-12] MEDS: INSULIN LISPRO 100 UNITS/ML, PEN SQ-INSULIN SCH ×4 (03:43→20:13)
[2020-08-12 04:52] LABS: ANION GAP 4 mmol/L (5-15); CHLORIDE 114 mmol/L (98-107); CREATININE 2.68 mg/dL (0.7-1.3)
[2020-08-12] MEDS: HEPARIN 5,000 UNITS/ML, 1ML SQ SCH ×3 (04:53→19:59)
[2020-08-12] MEDS: MIDAZOLAM HCL 100 MG in SODIUM CHLORIDE 0.9% 80 ML IV PRN ×2 (04:54→18:55)
[2020-08-12] MEDS: PROPOFOL IV PRN ×2 (04:54→18:56)
[2020-08-12 04:58] LABS: BASOPHILS % (AUTO) 1 % (0-1); EOSINOPHILS % (AUTO) 6 % (1-7); LYMPHOCYTES % (AUTO) 13 % (22-44); MEAN CORPUSCULAR HEMOGLOBIN 28.6 pg (27.5-34.5); MEAN CORPUSCULAR HGB CONC 33.3 g/dL (33.2-36.2); MEAN PLATELET VOLUME 7.1 fL (7.4-10.4); MONOCYTES % (AUTO) 7 % (2-9); NEUTROPHILS % (AUTO) 74 % (42-75); PLATELET COUNT 279 x10^3/uL (130-400); RED BLOOD COUNT 3.66 x10^6/uL (4.38-5.82); RED CELL DISTRIBUTION WIDTH 16.4 % (9.4-14.8)
[2020-08-12 05:07] LABS: MD NO
[2020-08-12] MEDS: METOPROLOL TARTRATE 25 MG TAB PO SCH (06:04)
[2020-08-12] MEDS: ESCITALOPRAM 10MG TABLET PO SCH (08:04)
[2020-08-12] MEDS: GABAPENTIN 300 MG CAPSULE PO SCH ×2 (08:04→19:58)
[2020-08-12] MEDS: AMLODIPINE 10 MG TAB PO SCH (08:04)
[2020-08-12] MEDS: PANTOPRAZOLE 40 MG IV IVPush SCH (08:04)
[2020-08-12] MEDS: RISPERIDONE 0.5 MG TABLET PO SCH ×2 (08:04→19:59)
[2020-08-12] MEDS: VALSARTAN 160 MG TABLET PO SCH (08:05)
[2020-08-12] MEDS: LABETALOL 5MG/ML, 20ML IVPush PRN ×2 (09:45→13:59)
[2020-08-12] MEDS ORDERED: LORazepam 2 MG/ML, 1ML IVPush ONE (10:30)
[2020-08-12] MEDS: hydrALAzine 20 MG/ML, 1ML IV PRN (11:22)
[2020-08-12] MEDS: ESMOLOL/NS PMX 250 ML IV PRN ×5 (13:56→22:12)
[2020-08-12] MEDS: METOCLOPRAMIDE 5 MG/ML, 2ML IVPush SCH ×2 (16:59→19:59)
[2020-08-12] MEDS ORDERED: INSULIN GLARGINE 100 UNITS/ML, PEN SQ-INSULIN SCH ×2 (21:00)
[2020-08-13] MEDS: ESMOLOL/NS PMX 250 ML IV PRN ×8 (01:52→23:29)
[2020-08-13] MEDS: MIDAZOLAM HCL 100 MG in SODIUM CHLORIDE 0.9% 80 ML IV PRN ×3 (03:19→19:43)
[2020-08-13] MEDS: INSULIN LISPRO 100 UNITS/ML, PEN SQ-INSULIN SCH ×4 (03:28→20:55)
[2020-08-13] MEDS: METOCLOPRAMIDE 5 MG/ML, 2ML IVPush SCH ×4 (03:29→21:02)
[2020-08-13 04:26] LABS: BASOPHILS % (AUTO) 1 % (0-1); EOSINOPHILS % (AUTO) 4 % (1-7); LYMPHOCYTES % (AUTO) 11 % (22-44); MEAN CORPUSCULAR HEMOGLOBIN 28.1 pg (27.5-34.5); MEAN PLATELET VOLUME 7.4 fL (7.4-10.4); MONOCYTES % (AUTO) 6 % (2-9); NEUTROPHILS % (AUTO) 78 % (42-75); PLATELET COUNT 308 x10^3/uL (130-400); RED BLOOD COUNT 3.88 x10^6/uL (4.38-5.82); RED CELL DISTRIBUTION WIDTH 16.2 % (9.4-14.8)
[2020-08-13] MEDS: PROPOFOL IV PRN (04:31)
[2020-08-13] MEDS: HEPARIN 5,000 UNITS/ML, 1ML SQ SCH ×2 (04:31→13:42)
[2020-08-13 04:33] LABS: MD NO
[2020-08-13 04:38] LABS: ANION GAP 7 mmol/L (5-15); CALCIUM 8.9 mg/dL (8.5-10.1); CHLORIDE 112 mmol/L (98-107)
[2020-08-13 04:39] LABS: CREATININE 2.79 mg/dL (0.7-1.3); TRIGLYCERIDES 490 mg/dL (50-200)
[2020-08-13] MEDS: FUROSEMIDE 40 MG/4 ML IV SCH (08:53)
[2020-08-13] MEDS ORDERED: ESCITALOPRAM 10MG TABLET PO SCH (09:00)
[2020-08-13] MEDS: VALSARTAN 160 MG TABLET PO SCH (09:49)
[2020-08-13] MEDS: PANTOPRAZOLE 40 MG IV IVPush SCH (09:49)
[2020-08-13] MEDS: GABAPENTIN 300 MG CAPSULE PO SCH ×2 (09:56→20:49)
[2020-08-13] MEDS: RISPERIDONE 0.5 MG TABLET PO SCH ×2 (09:56→20:49)
[2020-08-13] MEDS: AMLODIPINE 10 MG TAB PO SCH (09:56)
[2020-08-13] MEDS: LABETALOL 200 MG TABLET PO SCH ×2 (09:57→18:19)
[2020-08-13] MEDS ORDERED: HEPARIN 25,000 UNITS/250ML PMX 250 ML IV PRN (16:00)
[2020-08-13] MEDS ORDERED: HEPARIN 5,000 UNITS/ML, 1ML IV ONE (16:00)
[2020-08-13] MEDS ORDERED: HEPARIN 5,000 UNITS/ML, 1ML IV PRN (16:00)
[2020-08-13] MEDS: DEXMEDETOMIDINE 400 MCG in SODIUM CHLORIDE 0.9% 96 ML IV SCH ×2 (17:23→19:42)
[2020-08-13] MEDS ORDERED: INSULIN GLARGINE 100 UNITS/ML, PEN SQ-INSULIN SCH (21:00)
[2020-08-13] MEDS: DEXMEDETOMIDINE 1,000 MCG in SODIUM CHLORIDE 0.9% 240 ML IV SCH (22:19)
[2020-08-14] MEDS: hydrALAzine 20 MG/ML, 1ML IV PRN (03:47)
[2020-08-14] MEDS: METOCLOPRAMIDE 5 MG/ML, 2ML IVPush SCH ×4 (03:47→23:01)
[2020-08-14] MEDS: INSULIN LISPRO 100 UNITS/ML, PEN SQ-INSULIN SCH ×4 (03:49→21:18)
[2020-08-14 04:36] LABS: BASOPHILS % (AUTO) 1 % (0-1); EOSINOPHILS % (AUTO) 0 % (1-7); LYMPHOCYTES % (AUTO) 6 % (22-44); MEAN CORPUSCULAR HEMOGLOBIN 27.7 pg (27.5-34.5); MEAN CORPUSCULAR HGB CONC 32.5 g/dL (33.2-36.2); MONOCYTES % (AUTO) 6 % (2-9); NEUTROPHILS % (AUTO) 87 % (42-75); PLATELET COUNT 268 x10^3/uL (130-400); RED BLOOD COUNT 3.85 x10^6/uL (4.38-5.82)
[2020-08-14 04:37] LABS: MD NO
[2020-08-14 04:42] LABS: ANION GAP 7 mmol/L (5-15); CHLORIDE 118 mmol/L (98-107); CREATININE 2.55 mg/dL (0.7-1.3)
[2020-08-14] MEDS: LABETALOL 200 MG TABLET PO SCH ×2 (06:16→17:48)
[2020-08-14] MEDS: ESMOLOL/NS PMX 250 ML IV PRN ×2 (07:30→22:35)
[2020-08-14] MEDS: DEXMEDETOMIDINE 1,000 MCG in SODIUM CHLORIDE 0.9% 240 ML IV SCH ×3 (07:32→22:35)
[2020-08-14] MEDS: AMLODIPINE 10 MG TAB PO SCH (08:20)
[2020-08-14] MEDS: VALSARTAN 160 MG TABLET PO SCH (08:20)
[2020-08-14] MEDS: PANTOPRAZOLE 40 MG IV IVPush SCH (08:20)
[2020-08-14] MEDS: GABAPENTIN 300 MG CAPSULE PO SCH ×2 (08:20→21:17)
[2020-08-14] MEDS: RISPERIDONE 0.5 MG TABLET PO SCH ×2 (08:21→21:17)
[2020-08-14] MEDS ORDERED: FENTANYL PF 100 MCG/2ML ONE (10:40)
[2020-08-14] MEDS: HEPARIN 5,000 UNITS/ML, 1ML SQ SCH ×2 (10:44→17:47)
[2020-08-14] MEDS: INSULIN GLARGINE 100 UNITS/ML, PEN SQ-INSULIN SCH ×2 (10:45→21:19)
[2020-08-14] MEDS ORDERED: FENTANYL PF 1,000 MCG in SODIUM CHLORIDE 0.9% 80 ML IV PRN (11:00)
[2020-08-14 11:34] LABS: ALANINE AMINOTRANSFERASE 22 U/L (12-78); ALBUMIN 2.7 g/dL (3.4-5.0)
[2020-08-14 11:37] LABS: ALKALINE PHOSPHATASE 95 U/L (45-117); BILIRUBIN,TOTAL 0.2 mg/dL (0.2-1.0); TOTAL PROTEIN 6.4 g/dL (6.4-8.2)
[2020-08-14] MEDS: FENTANYL PF 100 MCG/2ML IVPush PRN ×3 (11:43→15:37)
[2020-08-14 11:45] LABS: BILIRUBIN, DIRECT < 0.1 mg/dL (0.1-0.2); BILIRUBIN,INDIRECT 0.1 mg/dL (0.0-2.0)
[2020-08-14 13:37] LABS: MICROSCOPIC INDICATED
[2020-08-14] MEDS: PROPOFOL 100 ML IV PRN (18:34)
[2020-08-14] MEDS: FENTANYL PF 1,000 MCG in SODIUM CHLORIDE 0.9% 80 ML IV PRN (19:07)
[2020-08-15] MEDS: HEPARIN 5,000 UNITS/ML, 1ML SQ SCH ×3 (02:02→18:00)
[2020-08-15] MEDS: FENTANYL PF 1,000 MCG in SODIUM CHLORIDE 0.9% 80 ML IV PRN ×3 (03:18→21:04)
[2020-08-15] MEDS: INSULIN LISPRO 100 UNITS/ML, PEN SQ-INSULIN SCH ×4 (03:50→21:08)
[2020-08-15 04:12] LABS: BASOPHILS % (AUTO) 0 % (0-1); EOSINOPHILS % (AUTO) 0 % (1-7); LYMPHOCYTES % (AUTO) 4 % (22-44); MEAN CORPUSCULAR HEMOGLOBIN 27.7 pg (27.5-34.5); MEAN CORPUSCULAR HGB CONC 31.9 g/dL (33.2-36.2); MEAN PLATELET VOLUME 8.1 fL (7.4-10.4); MONOCYTES % (AUTO) 6 % (2-9); NEUTROPHILS % (AUTO) 90 % (42-75); PLATELET COUNT 250 x10^3/uL (130-400); RED BLOOD COUNT 3.61 x10^6/uL (4.38-5.82); RED CELL DISTRIBUTION WIDTH 16.5 % (9.4-14.8)
[2020-08-15 04:20] LABS: ANION GAP 8 mmol/L (5-15); CALCIUM 8.1 mg/dL (8.5-10.1); CHLORIDE 123 mmol/L (98-107); CREATININE 1.86 mg/dL (0.7-1.3)
[2020-08-15 04:22] LABS: MD NO
[2020-08-15] MEDS: LABETALOL 200 MG TABLET PO SCH ×2 (04:35→18:01)
[2020-08-15] MEDS: METOCLOPRAMIDE 5 MG/ML, 2ML IVPush SCH ×4 (04:35→23:46)
[2020-08-15] MEDS: hydrALAzine 20 MG/ML, 1ML IV PRN (04:36)
[2020-08-15] MEDS: PROPOFOL 100 ML IV PRN ×4 (05:17→21:11)
[2020-08-15] MEDS ORDERED: ALBUTEROL SULFATE 2.5 MG/3 ML ONE (08:21)
[2020-08-15] MEDS: FENTANYL PF 100 MCG/2ML IVPush PRN ×2 (08:44→12:33)
[2020-08-15] MEDS: ESMOLOL/NS PMX 250 ML IV PRN (08:44)
[2020-08-15] MEDS: RISPERIDONE 0.5 MG TABLET PO SCH (08:44)
[2020-08-15] MEDS: VALSARTAN 160 MG TABLET PO SCH (08:45)
[2020-08-15] MEDS: PANTOPRAZOLE 40 MG IV IVPush SCH (08:45)
[2020-08-15] MEDS: GABAPENTIN 300 MG CAPSULE PO SCH ×2 (08:45→21:04)
[2020-08-15] MEDS: AMLODIPINE 10 MG TAB PO SCH (08:45)
[2020-08-15] MEDS ORDERED: ACETAMINOPHEN 325 MG TABLET ONE (08:47)
[2020-08-15] MEDS ORDERED: ALBUTEROL/IPRATROPIUM 2.5MG/0.5MG, 3 ML ONE (08:51)
[2020-08-15] MEDS: INSULIN GLARGINE 100 UNITS/ML, PEN SQ-INSULIN SCH ×2 (09:41→21:07)
[2020-08-15] MEDS: ACETAMINOPHEN 325 MG TABLET PO PRN ×3 (09:59→21:18)
[2020-08-15] MEDS: SODIUM CHLORIDE FLUSH 10ML SYR IVF SCH ×2 (11:30→21:03)
[2020-08-15] MEDS ORDERED: PROPOFOL 100 ML IV PRN (11:30)
[2020-08-15] MEDS ORDERED: SENNA/DOCUSATE TABLET NG PRN (11:30)
[2020-08-15] MEDS ORDERED: LIDOCAINE-MPF 1%, 2ML ENDO PRN (11:30)
[2020-08-15] MEDS ORDERED: DEXMEDETOMIDINE 400 MCG in SODIUM CHLORIDE 0.9% 96 ML IV PRN (11:30)
[2020-08-15] MEDS ORDERED: DEXTROSE 4 GM TAB.CHEW PO PRN (11:30)
[2020-08-15] MEDS ORDERED: GLUCAGON 1 MG IM PRN (11:30)
[2020-08-15] MEDS ORDERED: LACTULOSE 20 GM/30 ML UDC NG PRN (11:30)
[2020-08-15] MEDS ORDERED: BISACODYL 10 MG SUPP PR PRN (11:30)
[2020-08-15] MEDS ORDERED: PHARMACY MAY ADJ FOR RENAL FX MC SCH (11:30)
[2020-08-15] MEDS ORDERED: SENNA 176 MG/5 ML ORAL SOL NG PRN (11:30)
[2020-08-15] MEDS ORDERED: VANCOMYCIN PER PHARMACY MC PRN (12:00)
[2020-08-15] MEDS: AMPICILLIN/SULBACTAM 3 GM in SODIUM CHLORIDE 0.9% 100 ML IV SCH ×2 (12:08→21:02)
[2020-08-15] MEDS: DEXMEDETOMIDINE 1,000 MCG in SODIUM CHLORIDE 0.9% 240 ML IV SCH ×2 (12:11→19:00)
[2020-08-15] MEDS ORDERED: PHARMACOKINETIC MONITORING MC PRN (12:30)
[2020-08-15] MEDS ORDERED: PHARMACOKINETIC CONSULTATION MC ONE (12:30)
[2020-08-15] MEDS ORDERED: VANCOMYCIN 2,000 MG in SODIUM CHLORIDE 0.9% 500 ML IV ONE (12:30)
[2020-08-15 13:39] LABS: ANION GAP 5 mmol/L (5-15); CALCIUM 9.1 mg/dL (8.5-10.1); CHLORIDE 125 mmol/L (98-107); CREATININE 2.33 mg/dL (0.7-1.3)
[2020-08-15 14:47] LABS: ANION GAP 3 mmol/L (5-15); CALCIUM 9.3 mg/dL (8.5-10.1); CHLORIDE 125 mmol/L (98-107)
[2020-08-15 14:48] LABS: CREATININE 2.35 mg/dL (0.7-1.3)
[2020-08-15] MEDS ORDERED: ROCURONIUM 10MG/ML,5ML ONE (19:40)
[2020-08-15] MEDS ORDERED: PROPOFOL 10 MG/ML, 100ML IV ONE (19:40)
[2020-08-15] MEDS ORDERED: ETOMIDATE 20 MG/10 ML ONE (19:40)
[2020-08-15] MEDS ORDERED: MIDAZOLAM 1 MG/ML, 5ML ONE (19:40)
[2020-08-15] MEDS: QUETIAPINE 25MG TABLET PO SCH (21:04)
[2020-08-16] MEDS: HEPARIN 5,000 UNITS/ML, 1ML SQ SCH ×3 (00:39→15:41)
[2020-08-16] MEDS: DEXMEDETOMIDINE 1,000 MCG in SODIUM CHLORIDE 0.9% 240 ML IV SCH ×3 (01:14→17:33)
[2020-08-16] MEDS ORDERED: IBUPROFEN 200 MG TABLET PO ONE (02:00)
[2020-08-16 04:36] LABS: BASOPHILS % (AUTO) 1 % (0-1); EOSINOPHILS % (AUTO) 2 % (1-7); LYMPHOCYTES % (AUTO) 6 % (22-44); MEAN CORPUSCULAR HEMOGLOBIN 28.3 pg (27.5-34.5); MEAN CORPUSCULAR HGB CONC 32.5 g/dL (33.2-36.2); MONOCYTES % (AUTO) 5 % (2-9); NEUTROPHILS % (AUTO) 87 % (42-75); PLATELET COUNT 262 x10^3/uL (130-400); RED BLOOD COUNT 3.49 x10^6/uL (4.38-5.82); RED CELL DISTRIBUTION WIDTH 16.2 % (9.4-14.8)
[2020-08-16] MEDS: AMPICILLIN/SULBACTAM 3 GM in SODIUM CHLORIDE 0.9% 100 ML IV SCH ×3 (04:37→22:47)
[2020-08-16] MEDS: PROPOFOL 100 ML IV PRN ×3 (04:38→17:23)
[2020-08-16] MEDS: QUETIAPINE 25MG TABLET PO SCH ×3 (04:38→21:40)
[2020-08-16 04:47] LABS: ANION GAP 7 mmol/L (5-15); CALCIUM 8.4 mg/dL (8.5-10.1); CHLORIDE 125 mmol/L (98-107); MD NO
[2020-08-16 04:48] LABS: CREATININE 2.44 mg/dL (0.7-1.3); TRIGLYCERIDES 248 mg/dL (50-200)
[2020-08-16] MEDS: INSULIN LISPRO 100 UNITS/ML, PEN SQ-INSULIN SCH ×4 (04:48→21:35)
[2020-08-16] MEDS: METOCLOPRAMIDE 5 MG/ML, 2ML IVPush SCH ×2 (06:11→09:17)
[2020-08-16] MEDS: LABETALOL 200 MG TABLET PO SCH ×2 (06:12→18:10)
[2020-08-16] MEDS: FENTANYL PF 1,000 MCG in SODIUM CHLORIDE 0.9% 80 ML IV PRN ×2 (06:28→14:03)
[2020-08-16] MEDS ORDERED: DEXTROSE 5% 1,000 ML IV SCH (06:30)
[2020-08-16] MEDS: PANTOPRAZOLE 40 MG IV IVPush SCH (09:16)
[2020-08-16] MEDS: SODIUM CHLORIDE FLUSH 10ML SYR IVF SCH ×2 (09:16→21:40)
[2020-08-16] MEDS: GABAPENTIN 300 MG CAPSULE PO SCH ×2 (09:17→21:40)
[2020-08-16] MEDS: AMLODIPINE 10 MG TAB PO SCH (09:17)
[2020-08-16] MEDS: VALSARTAN 160 MG TABLET PO SCH (09:17)
[2020-08-16] MEDS: INSULIN GLARGINE 100 UNITS/ML, PEN SQ-INSULIN SCH ×2 (09:20→21:35)
[2020-08-16] MEDS ORDERED: POTASSIUM CHLORIDE 20 MEQ TAB.ER.PRT PO ONE (09:30)
[2020-08-16] MEDS: ACETAMINOPHEN 325 MG TABLET PO PRN ×3 (11:52→21:40)
[2020-08-16] MEDS: FENTANYL PF 100 MCG/2ML IVPush PRN (12:36)
[2020-08-16] MEDS: MIDAZOLAM HCL 50 MG in SODIUM CHLORIDE 0.9% 40 ML IV PRN (12:37)
[2020-08-16] MEDS ORDERED: VANCOMYCIN 2,000 MG in SODIUM CHLORIDE 0.9% 500 ML IV ONE (15:00)
[2020-08-16] MEDS ORDERED: VANCOMYCIN 2,000 MG in DEXTROSE 5% 500 ML IV ONE (16:30)
[2020-08-17] MEDS: HEPARIN 5,000 UNITS/ML, 1ML SQ SCH ×3 (00:22→16:43)
[2020-08-17] MEDS: FENTANYL PF 1,000 MCG in SODIUM CHLORIDE 0.9% 80 ML IV PRN ×4 (00:25→15:21)
[2020-08-17] MEDS: PROPOFOL 100 ML IV PRN ×4 (01:35→19:59)
[2020-08-17] MEDS: DEXMEDETOMIDINE 1,000 MCG in SODIUM CHLORIDE 0.9% 240 ML IV SCH ×2 (03:29→23:17)
[2020-08-17 03:52] LABS: BASOPHILS % (AUTO) 1 % (0-1); EOSINOPHILS % (AUTO) 5 % (1-7); LYMPHOCYTES % (AUTO) 6 % (22-44); MEAN CORPUSCULAR HEMOGLOBIN 27.7 pg (27.5-34.5); MEAN CORPUSCULAR HGB CONC 31.6 g/dL (33.2-36.2); MEAN PLATELET VOLUME 8.5 fL (7.4-10.4); MONOCYTES % (AUTO) 4 % (2-9); NEUTROPHILS % (AUTO) 84 % (42-75); PLATELET COUNT 287 x10^3/uL (130-400); RED BLOOD COUNT 3.67 x10^6/uL (4.38-5.82); RED CELL DISTRIBUTION WIDTH 16.5 % (9.4-14.8)
[2020-08-17 03:56] LABS: MD NO
[2020-08-17 03:58] LABS: ANION GAP 8 mmol/L (5-15); CALCIUM 8.6 mg/dL (8.5-10.1); CHLORIDE 121 mmol/L (98-107); CREATININE 2.44 mg/dL (0.7-1.3)
[2020-08-17] MEDS: INSULIN LISPRO 100 UNITS/ML, PEN SQ-INSULIN SCH ×6 (04:07→21:15)
[2020-08-17] MEDS: LABETALOL 200 MG TABLET PO SCH (04:58)
[2020-08-17] MEDS: QUETIAPINE 25MG TABLET PO SCH (04:58)
[2020-08-17] MEDS: ACETAMINOPHEN 325 MG TABLET PO PRN (04:58)
[2020-08-17] MEDS: AMPICILLIN/SULBACTAM 3 GM in SODIUM CHLORIDE 0.9% 100 ML IV SCH (06:16)
[2020-08-17] MEDS ORDERED: POTASSIUM CHLORIDE 20 MEQ TAB.ER.PRT PO ONE (07:30)
[2020-08-17] MEDS: SODIUM CHLORIDE FLUSH 10ML SYR IVF SCH ×2 (09:58→21:13)
[2020-08-17] MEDS: PANTOPRAZOLE 40 MG IV IVPush SCH (09:58)
[2020-08-17] MEDS: AMLODIPINE 10 MG TAB PO SCH (09:59)
[2020-08-17] MEDS: VALSARTAN 160 MG TABLET PO SCH (09:59)
[2020-08-17] MEDS: MEROPENEM 500 MG in SODIUM CHLORIDE 0.9% 100 ML IV SCH ×2 (10:00→21:14)
[2020-08-17] MEDS ORDERED: FUROSEMIDE 40 MG/4 ML IV ONE (10:00)
[2020-08-17] MEDS: BUPROPION 100 MG TABLET PO SCH (10:18)
[2020-08-17] MEDS: MIDAZOLAM HCL 50 MG in SODIUM CHLORIDE 0.9% 40 ML IV PRN (10:50)
[2020-08-17] MEDS: FLUCONAZOLE 200 MG/100 ML 100 ML IV SCH (10:52)
[2020-08-17 14:17] LABS: CLOSTRIDIUM DIFFICILE ANTIGEN NEGATIVE; CLOSTRIDIUM DIFFICILE TOXIN NEGATIVE (Negative)
[2020-08-17] MEDS: FENTANYL PF 2,500 MCG in SODIUM CHLORIDE 0.9% 200 ML IV PRN ×2 (16:50→23:18)
[2020-08-17] MEDS: CARVEDILOL 12.5 MG TABLET PO SCH (17:36)
[2020-08-17] MEDS: POTASSIUM CHLORIDE 10% 20 MEQ/15 ML UDC PO SCH (21:13)
[2020-08-17] MEDS: INSULIN GLARGINE 100 UNITS/ML, PEN SQ-INSULIN SCH (21:14)
[2020-08-18] MEDS: HEPARIN 5,000 UNITS/ML, 1ML SQ SCH ×4 (01:28→23:57)
[2020-08-18] MEDS: INSULIN LISPRO 100 UNITS/ML, PEN SQ-INSULIN SCH ×6 (01:29→21:41)
[2020-08-18] MEDS: PROPOFOL 100 ML IV PRN ×5 (04:11→23:57)
[2020-08-18 04:51] LABS: BASOPHILS % (AUTO) 1 % (0-1); EOSINOPHILS % (AUTO) 8 % (1-7); LYMPHOCYTES % (AUTO) 10 % (22-44); MEAN CORPUSCULAR HEMOGLOBIN 28.2 pg (27.5-34.5); MEAN CORPUSCULAR HGB CONC 32.7 g/dL (33.2-36.2); MEAN PLATELET VOLUME 8.8 fL (7.4-10.4); MONOCYTES % (AUTO) 5 % (2-9); NEUTROPHILS % (AUTO) 77 % (42-75); PLATELET COUNT 281 x10^3/uL (130-400); RED BLOOD COUNT 3.23 x10^6/uL (4.38-5.82); RED CELL DISTRIBUTION WIDTH 16.5 % (9.4-14.8)
[2020-08-18 04:52] LABS: MD NO
[2020-08-18 05:02] LABS: ANION GAP 6 mmol/L (5-15); CHLORIDE 121 mmol/L (98-107)
[2020-08-18 05:09] LABS: CALCIUM 8.6 mg/dL (8.5-10.1); TRIGLYCERIDES 272 mg/dL (50-200); VANCOMYCIN,RANDOM 16.1 mcg/mL
[2020-08-18] MEDS: CARVEDILOL 12.5 MG TABLET PO SCH ×2 (05:36→17:45)
[2020-08-18] MEDS ORDERED: POTASSIUM CHLORIDE 20 MEQ PACKET ONE (08:18)
[2020-08-18] MEDS: MEROPENEM 500 MG in SODIUM CHLORIDE 0.9% 100 ML IV SCH ×2 (09:19→21:40)
[2020-08-18] MEDS: SODIUM CHLORIDE FLUSH 10ML SYR IVF SCH ×2 (09:19→21:40)
[2020-08-18] MEDS: DEXMEDETOMIDINE 1,000 MCG in SODIUM CHLORIDE 0.9% 240 ML IV SCH ×2 (10:17→19:36)
[2020-08-18] MEDS: FLUCONAZOLE 200 MG/100 ML 100 ML IV SCH (10:18)
[2020-08-18] MEDS: AMLODIPINE 10 MG TAB PO SCH (10:57)
[2020-08-18] MEDS: BUPROPION 100 MG TABLET PO SCH (10:57)
[2020-08-18] MEDS: PANTOPRAZOLE 40 MG IV IVPush SCH (10:57)
[2020-08-18] MEDS: POTASSIUM CHLORIDE 10% 20 MEQ/15 ML UDC PO SCH ×2 (10:58→21:40)
[2020-08-18] MEDS: INSULIN GLARGINE 100 UNITS/ML, PEN SQ-INSULIN SCH ×2 (10:59→21:00)
[2020-08-18] MEDS ORDERED: VANCOMYCIN 2,000 MG in SODIUM CHLORIDE 0.9% 500 ML IV SCH (11:00)
[2020-08-18] MEDS: VALSARTAN 160 MG TABLET PO SCH (11:05)
[2020-08-18] MEDS: FENTANYL PF 2,500 MCG in SODIUM CHLORIDE 0.9% 200 ML IV PRN (19:36)
[2020-08-19] MEDS: INSULIN LISPRO 100 UNITS/ML, PEN SQ-INSULIN SCH ×5 (02:00→21:41)
[2020-08-19] MEDS: DEXMEDETOMIDINE 1,000 MCG in SODIUM CHLORIDE 0.9% 240 ML IV SCH ×3 (03:27→19:07)
[2020-08-19 04:36] LABS: BASOPHILS % (AUTO) 1 % (0-1); EOSINOPHILS % (AUTO) 7 % (1-7); LYMPHOCYTES % (AUTO) 12 % (22-44); MD NO; MEAN CORPUSCULAR HGB CONC 32.3 g/dL (33.2-36.2); MEAN PLATELET VOLUME 9.2 fL (7.4-10.4); MONOCYTES % (AUTO) 6 % (2-9); NEUTROPHILS % (AUTO) 75 % (42-75); PLATELET COUNT 309 x10^3/uL (130-400); RED BLOOD COUNT 3.14 x10^6/uL (4.38-5.82); RED CELL DISTRIBUTION WIDTH 16.9 % (9.4-14.8)
[2020-08-19 04:49] LABS: ALANINE AMINOTRANSFERASE 47 U/L (12-78); ALBUMIN 1.8 g/dL (3.4-5.0); CALCIUM 8.3 mg/dL (8.5-10.1); CHLORIDE 120 mmol/L (98-107); CREATININE 2.33 mg/dL (0.7-1.3)
[2020-08-19 04:51] LABS: ALKALINE PHOSPHATASE 145 U/L (45-117); ANION GAP 6 mmol/L (5-15); BILIRUBIN,TOTAL 0.3 mg/dL (0.2-1.0); TOTAL PROTEIN 5.3 g/dL (6.4-8.2); TRIGLYCERIDES 206 mg/dL (50-200)
[2020-08-19] MEDS: CARVEDILOL 12.5 MG TABLET PO SCH ×2 (05:07→17:43)
[2020-08-19] MEDS: SODIUM CHLORIDE FLUSH 10ML SYR IVF SCH ×2 (07:39→20:22)
[2020-08-19] MEDS: PANTOPRAZOLE 40 MG IV IVPush SCH (07:39)
[2020-08-19] MEDS: AMLODIPINE 10 MG TAB PO SCH (07:39)
[2020-08-19] MEDS: HEPARIN 5,000 UNITS/ML, 1ML SQ SCH ×2 (07:40→17:57)
[2020-08-19] MEDS: VALSARTAN 160 MG TABLET PO SCH (07:40)
[2020-08-19] MEDS ORDERED: BUPROPION SR 100 MG TABLET ONE (07:44)
[2020-08-19] MEDS: ESCITALOPRAM 10MG TABLET PO SCH (07:45)
[2020-08-19] MEDS: FENTANYL PF 2,500 MCG in SODIUM CHLORIDE 0.9% 200 ML IV PRN (07:55)
[2020-08-19] MEDS: PROPOFOL 100 ML IV PRN ×4 (07:55→23:01)
[2020-08-19] MEDS ORDERED: VANCOMYCIN PER PHARMACY MC PRN (09:00)
[2020-08-19] MEDS ORDERED: FAMOTIDINE 20 MG/2 ML IVPush SCH (09:00)
[2020-08-19] MEDS ORDERED: AMLODIPINE 10 MG TAB PO SCH (09:00)
[2020-08-19] MEDS ORDERED: PHARMACOKINETIC MONITORING MC PRN (09:00)
[2020-08-19] MEDS: MEROPENEM 500 MG in SODIUM CHLORIDE 0.9% 100 ML IV SCH ×2 (10:55→21:41)
[2020-08-19] MEDS: CHOLESTYRAMINE LIGHT 4GM PACKET PO SCH ×2 (10:55→21:40)
[2020-08-19] MEDS: INSULIN GLARGINE 100 UNITS/ML, PEN SQ-INSULIN SCH ×2 (11:01→21:41)
[2020-08-19] MEDS: FLUCONAZOLE 200 MG/100 ML 100 ML IV SCH (12:08)
[2020-08-19] MEDS: BUPROPION 75 MG TABLET PO SCH ×2 (12:09→20:21)
[2020-08-19] MEDS: LACTOBACILLUS CHEW TABLET PO SCH ×3 (12:09→20:21)
[2020-08-19] MEDS ORDERED: VANCOMYCIN 2,000 MG in SODIUM CHLORIDE 0.9% 500 ML IV SCH (23:00)
[2020-08-20] MEDS: HEPARIN 5,000 UNITS/ML, 1ML SQ SCH ×3 (00:59→15:17)
[2020-08-20] MEDS: FENTANYL PF 2,500 MCG in SODIUM CHLORIDE 0.9% 200 ML IV PRN ×2 (01:00→21:47)
[2020-08-20] MEDS: DEXMEDETOMIDINE 1,000 MCG in SODIUM CHLORIDE 0.9% 240 ML IV SCH ×4 (01:12→22:16)
[2020-08-20] MEDS: PROPOFOL 100 ML IV PRN ×7 (02:21→22:15)
[2020-08-20] MEDS: INSULIN LISPRO 100 UNITS/ML, PEN SQ-INSULIN SCH ×4 (02:47→20:55)
[2020-08-20 04:44] LABS: BASOPHILS % (AUTO) 1 % (0-1); EOSINOPHILS % (AUTO) 6 % (1-7); LYMPHOCYTES % (AUTO) 12 % (22-44); MEAN CORPUSCULAR HEMOGLOBIN 27.6 pg (27.5-34.5); MEAN CORPUSCULAR HGB CONC 32.4 g/dL (33.2-36.2); MEAN PLATELET VOLUME 8.7 fL (7.4-10.4); MONOCYTES % (AUTO) 6 % (2-9); NEUTROPHILS % (AUTO) 75 % (42-75); PLATELET COUNT 352 x10^3/uL (130-400); RED BLOOD COUNT 3.29 x10^6/uL (4.38-5.82)
[2020-08-20 04:54] LABS: MD NO
[2020-08-20 04:55] LABS: ANION GAP 5 mmol/L (5-15); CALCIUM 8.7 mg/dL (8.5-10.1); CHLORIDE 120 mmol/L (98-107)
[2020-08-20 04:56] LABS: CREATININE 2.22 mg/dL (0.7-1.3)
[2020-08-20] MEDS ORDERED: CALCIUM GLUCONATE IV ONE (06:00)
[2020-08-20] MEDS: CHOLESTYRAMINE LIGHT 4GM PACKET PO SCH ×2 (07:46→20:50)
[2020-08-20] MEDS: SODIUM CHLORIDE FLUSH 10ML SYR IVF SCH ×2 (07:52→20:21)
[2020-08-20] MEDS ORDERED: FAMOTIDINE 20 MG/2 ML IVPush SCH ×2 (09:00→21:00)
[2020-08-20] MEDS ORDERED: TETRACYCLINE HCL 250 MG CAPSULE PO SCH (09:00)
[2020-08-20] MEDS ORDERED: LINEZOLID 600 MG TABLET PO SCH (09:00)
[2020-08-20] MEDS: ESCITALOPRAM 10MG TABLET PO SCH (09:26)
[2020-08-20] MEDS: VALSARTAN 160 MG TABLET PO SCH (09:26)
[2020-08-20] MEDS: LACTOBACILLUS CHEW TABLET PO SCH ×3 (09:26→21:48)
[2020-08-20] MEDS: AMLODIPINE 5 MG TABLET PO SCH (09:27)
[2020-08-20] MEDS: MEROPENEM 500 MG in SODIUM CHLORIDE 0.9% 100 ML IV SCH (09:27)
[2020-08-20] MEDS: BUPROPION 75 MG TABLET PO SCH ×2 (09:27→21:48)
[2020-08-20] MEDS: ZIPRASIDONE 20 MG INJ IM SCH ×3 (09:29→20:19)
[2020-08-20] MEDS: INSULIN GLARGINE 100 UNITS/ML, PEN SQ-INSULIN SCH ×2 (09:36→20:55)
[2020-08-20] MEDS: FLUCONAZOLE 200 MG/100 ML 100 ML IV SCH (10:00)
[2020-08-20] MEDS ORDERED: MIDAZOLAM 1 MG/ML, 5ML ONE (10:11)
[2020-08-20] MEDS ORDERED: MIDAZOLAM 1 MG/ML, 5ML IVPush ONE (10:30)
[2020-08-20] MEDS: MIDAZOLAM HCL 50 MG in SODIUM CHLORIDE 0.9% 40 ML IV PRN ×2 (10:51→21:47)
[2020-08-20] MEDS: CARVEDILOL 12.5 MG TABLET PO SCH (16:47)
[2020-08-20] MEDS: MEROPENEM 1 GM in SODIUM CHLORIDE 0.9% 100 ML IV SCH (18:04)
[2020-08-20] MEDS: DOXYCYCLINE 100MG TABLET PO SCH (21:47)
[2020-08-21] MEDS: HEPARIN 5,000 UNITS/ML, 1ML SQ SCH ×3 (01:38→17:00)
[2020-08-21] MEDS: PROPOFOL 100 ML IV PRN ×7 (01:39→22:18)
[2020-08-21] MEDS: MEROPENEM 1 GM in SODIUM CHLORIDE 0.9% 100 ML IV SCH ×3 (01:39→17:12)
[2020-08-21 03:51] LABS: BASOPHILS % (AUTO) 1 % (0-1); EOSINOPHILS % (AUTO) 6 % (1-7); LYMPHOCYTES % (AUTO) 14 % (22-44); MEAN CORPUSCULAR HEMOGLOBIN 28.2 pg (27.5-34.5); MEAN CORPUSCULAR HGB CONC 32.5 g/dL (33.2-36.2); MEAN PLATELET VOLUME 8.7 fL (7.4-10.4); MONOCYTES % (AUTO) 6 % (2-9); NEUTROPHILS % (AUTO) 73 % (42-75); PLATELET COUNT 370 x10^3/uL (130-400); RED BLOOD COUNT 3.14 x10^6/uL (4.38-5.82); RED CELL DISTRIBUTION WIDTH 16.3 % (9.4-14.8)
[2020-08-21 04:01] LABS: ANION GAP 7 mmol/L (5-15); CALCIUM 8.9 mg/dL (8.5-10.1); CHLORIDE 122 mmol/L (98-107); CREATININE 2.07 mg/dL (0.7-1.3); TRIGLYCERIDES 279 mg/dL (50-200)
[2020-08-21] MEDS: INSULIN LISPRO 100 UNITS/ML, PEN SQ-INSULIN SCH ×4 (04:02→20:39)
[2020-08-21 04:16] LABS: MD SCAN
[2020-08-21] MEDS: ZIPRASIDONE 20 MG INJ IM SCH ×4 (04:29→20:38)
[2020-08-21] MEDS: DEXMEDETOMIDINE 1,000 MCG in SODIUM CHLORIDE 0.9% 240 ML IV SCH ×3 (04:59→17:17)
[2020-08-21] MEDS: CARVEDILOL 12.5 MG TABLET PO SCH ×2 (06:11→18:17)
[2020-08-21] MEDS: INSULIN GLARGINE 100 UNITS/ML, PEN SQ-INSULIN SCH ×2 (09:00→20:39)
[2020-08-21] MEDS: FLUCONAZOLE 200 MG/100 ML 100 ML IV SCH (10:00)
[2020-08-21] MEDS: SODIUM CHLORIDE FLUSH 10ML SYR IVF SCH ×2 (10:01→20:38)
[2020-08-21] MEDS: DOXYCYCLINE 100MG TABLET PO SCH ×2 (10:25→20:37)
[2020-08-21] MEDS: VALSARTAN 160 MG TABLET PO SCH (10:25)
[2020-08-21] MEDS: ESCITALOPRAM 10MG TABLET PO SCH (10:25)
[2020-08-21] MEDS: LACTOBACILLUS CHEW TABLET PO SCH ×3 (10:25→20:37)
[2020-08-21] MEDS: BUPROPION 75 MG TABLET PO SCH ×2 (10:25→20:37)
[2020-08-21] MEDS: AMLODIPINE 5 MG TABLET PO SCH (10:25)
[2020-08-21] MEDS: CHOLESTYRAMINE LIGHT 4GM PACKET PO SCH ×2 (10:26→20:37)
[2020-08-21] MEDS: FAMOTIDINE 20 MG/2 ML IVPush SCH (10:26)
[2020-08-21] MEDS ORDERED: VECURONIUM 10 MG ONE (16:13)
[2020-08-21] MEDS ORDERED: VECURONIUM 10 MG IVPush ONE (17:00)
[2020-08-22] MEDS: DEXMEDETOMIDINE 1,000 MCG in SODIUM CHLORIDE 0.9% 240 ML IV SCH ×4 (00:03→22:56)
[2020-08-22] MEDS: MEROPENEM 1 GM in SODIUM CHLORIDE 0.9% 100 ML IV SCH ×3 (02:12→17:18)
[2020-08-22] MEDS: PROPOFOL 100 ML IV PRN ×5 (02:12→22:02)
[2020-08-22] MEDS: DEXTROSE 50%, 50ML SYRINGE IVPush PRN ×2 (03:39→08:37)
[2020-08-22] MEDS: INSULIN LISPRO 100 UNITS/ML, PEN SQ-INSULIN SCH ×4 (03:43→19:51)
[2020-08-22] MEDS: ZIPRASIDONE 20 MG INJ IM SCH ×4 (03:43→22:03)
[2020-08-22] MEDS: FENTANYL PF 2,500 MCG in SODIUM CHLORIDE 0.9% 200 ML IV PRN ×2 (03:55→22:02)
[2020-08-22 04:38] LABS: MEAN CORPUSCULAR HGB CONC 32.8 g/dL (33.2-36.2); MEAN PLATELET VOLUME 8.4 fL (7.4-10.4); PLATELET COUNT 415 x10^3/uL (130-400); RED BLOOD COUNT 3.21 x10^6/uL (4.38-5.82); RED CELL DISTRIBUTION WIDTH 16.6 % (9.4-14.8)
[2020-08-22 04:49] LABS: ANION GAP 8 mmol/L (5-15); CALCIUM 8.8 mg/dL (8.5-10.1); CHLORIDE 123 mmol/L (98-107); CREATININE 2.12 mg/dL (0.7-1.3); TRIGLYCERIDES 183 mg/dL (50-200)
[2020-08-22] MEDS: CARVEDILOL 12.5 MG TABLET PO SCH (05:27)
[2020-08-22 05:48] LABS: MD YES
[2020-08-22 05:51] LABS: BAND#(MANUAL) 0.17 x10^3/uL; BANDS%(MANUAL) 2 % (0-7); LYMPH#(MANUAL) 1.04 x10^3/uL (1-3.4); LYMPHS% (MANUAL) 12 % (22-44); METAMYELOCYTES# (MANUAL) 0.26 x10^3/uL (0-0); METAMYELOCYTES% (MANUAL) 3 % (0-1); MONOS#(MANUAL) 0.17 x10^3/uL (0.3-2.7); MONOS% (MANUAL) 2 % (2-9); MYELOCYTES# (MANUAL) 0.17 x10^3/uL (0-0); MYELOCYTES% (MANUAL) 2 % (0-0); SEG#(MANUAL) 6.87 x10^3/uL (1.8-6.8); SEGS% (MANUAL) 79 % (42-75)
[2020-08-22 05:53] LABS: POLYCHROMASIA 1+; TEAR DROPS 1+
[2020-08-22 05:54] LABS: <PLATELET ESTIMATE> INCREASED; <PLT MORPHOLOGY> NORMAL PLT MORPH; ANISOCYTOSIS 1+; OVALOCYTES 1+
[2020-08-22] MEDS ORDERED: D5%-LACTATED RINGERS 1,000 ML IV SCH (06:30)
[2020-08-22] MEDS: FAMOTIDINE 20 MG/2 ML IVPush SCH (08:51)
[2020-08-22] MEDS: SODIUM CHLORIDE FLUSH 10ML SYR IVF SCH ×2 (08:52→19:50)
[2020-08-22] MEDS: INSULIN GLARGINE 100 UNITS/ML, PEN SQ-INSULIN SCH ×2 (08:53→19:52)
[2020-08-22] MEDS: ESCITALOPRAM 10MG TABLET PO SCH (09:00)
[2020-08-22] MEDS: BUPROPION 75 MG TABLET PO SCH ×2 (09:00→19:50)
[2020-08-22] MEDS: LACTOBACILLUS CHEW TABLET PO SCH ×3 (09:00→19:50)
[2020-08-22] MEDS: DOXYCYCLINE 100MG TABLET PO SCH ×2 (09:00→19:50)
[2020-08-22] MEDS: D5%-0.45% NACL 1,000 ML IV SCH (09:05)
[2020-08-22] MEDS: hydrALAzine 20 MG/ML, 1ML IV PRN (09:35)
[2020-08-22] MEDS ORDERED: VECURONIUM 10 MG ONE (10:28)
[2020-08-22] MEDS: LABETALOL 5MG/ML, 20ML IVPush PRN (11:21)
[2020-08-22] MEDS ORDERED: VECURONIUM 10 MG IVPush ONE (11:30)
[2020-08-22] MEDS: CARVEDILOL 6.25 MG TABLET PO SCH (17:43)
[2020-08-23] MEDS: MEROPENEM 1 GM in SODIUM CHLORIDE 0.9% 100 ML IV SCH (02:04)
[2020-08-23] MEDS: ZIPRASIDONE 20 MG INJ IM SCH ×4 (03:50→20:41)
[2020-08-23] MEDS: INSULIN LISPRO 100 UNITS/ML, PEN SQ-INSULIN SCH ×4 (04:00→20:53)
[2020-08-23] MEDS: D5%-0.45% NACL 1,000 ML IV SCH ×2 (04:01→23:39)
[2020-08-23 04:23] LABS: ANION GAP 7 mmol/L (5-15); CALCIUM 9.2 mg/dL (8.5-10.1); CHLORIDE 121 mmol/L (98-107); CREATININE 2.16 mg/dL (0.7-1.3)
[2020-08-23 04:24] LABS: MEAN CORPUSCULAR HEMOGLOBIN 27.6 pg (27.5-34.5); PLATELET COUNT 464 x10^3/uL (130-400); RED BLOOD COUNT 3.46 x10^6/uL (4.38-5.82); RED CELL DISTRIBUTION WIDTH 16.7 % (9.4-14.8)
[2020-08-23 05:08] LABS: MD YES
[2020-08-23 05:10] LABS: BAND#(MANUAL) 0.12 x10^3/uL; BANDS%(MANUAL) 1 % (0-7); EOS#(MANUAL) 0.24 x10^3/uL (0.0-0.4); EOS% (MANUAL) 2 % (1-7); LYMPH#(MANUAL) 0.95 x10^3/uL (1-3.4); LYMPHS% (MANUAL) 8 % (22-44); METAMYELOCYTES# (MANUAL) 0.24 x10^3/uL (0-0); METAMYELOCYTES% (MANUAL) 2 % (0-1); MONOS#(MANUAL) 0.48 x10^3/uL (0.3-2.7); MONOS% (MANUAL) 4 % (2-9); MYELOCYTES# (MANUAL) 0.12 x10^3/uL (0-0); MYELOCYTES% (MANUAL) 1 % (0-0); SEG#(MANUAL) 9.76 x10^3/uL (1.8-6.8); SEGS% (MANUAL) 82 % (42-75)
[2020-08-23 05:11] LABS: ANISOCYTOSIS 1+; OVALOCYTES 1+
[2020-08-23 05:12] LABS: <PLATELET ESTIMATE> INCREASED; <PLT MORPHOLOGY> NORMAL PLT MORPH; TEAR DROPS 1+
[2020-08-23] MEDS: DEXMEDETOMIDINE 1,000 MCG in SODIUM CHLORIDE 0.9% 240 ML IV SCH ×4 (05:19→19:27)
[2020-08-23] MEDS: CARVEDILOL 6.25 MG TABLET PO SCH ×2 (06:15→17:44)
[2020-08-23] MEDS: DOXYCYCLINE 100MG TABLET PO SCH (07:58)
[2020-08-23] MEDS: FAMOTIDINE 20 MG/2 ML IVPush SCH (07:58)
[2020-08-23] MEDS: LACTOBACILLUS CHEW TABLET PO SCH ×3 (07:59→20:43)
[2020-08-23] MEDS: ESCITALOPRAM 10MG TABLET PO SCH (07:59)
[2020-08-23] MEDS: BUPROPION 75 MG TABLET PO SCH ×2 (07:59→20:48)
[2020-08-23] MEDS: SODIUM CHLORIDE FLUSH 10ML SYR IVF SCH ×2 (08:02→20:42)
[2020-08-23] MEDS: OXYcodone IR 5MG TABLET PO SCH ×3 (09:33→20:44)
[2020-08-23] MEDS: INSULIN GLARGINE 100 UNITS/ML, PEN SQ-INSULIN SCH ×2 (09:40→20:54)
[2020-08-23] MEDS: LABETALOL 5MG/ML, 20ML IVPush PRN (17:16)
[2020-08-23] MEDS: PROPOFOL 100 ML IV PRN ×2 (18:19→21:40)
[2020-08-23] MEDS ORDERED: FUROSEMIDE 40 MG/4 ML IV ONE (20:30)
[2020-08-23] MEDS: DOXYCYCLINE 50 MG/5 ML ORAL SUSP PO SCH (20:42)
[2020-08-23] MEDS: HEPARIN 5,000 UNITS/ML, 1ML SQ SCH (20:44)
[2020-08-24] MEDS: DEXMEDETOMIDINE 1,000 MCG in SODIUM CHLORIDE 0.9% 240 ML IV SCH ×3 (01:57→18:21)
[2020-08-24] MEDS: OXYcodone IR 5MG TABLET PO SCH (04:36)
[2020-08-24] MEDS: INSULIN LISPRO 100 UNITS/ML, PEN SQ-INSULIN SCH ×4 (04:37→21:00)
[2020-08-24 04:56] LABS: BASOPHILS % (AUTO) 1 % (0-1); EOSINOPHILS % (AUTO) 2 % (1-7); LYMPHOCYTES % (AUTO) 6 % (22-44); MEAN CORPUSCULAR HGB CONC 32.7 g/dL (33.2-36.2); MEAN PLATELET VOLUME 8.1 fL (7.4-10.4); MONOCYTES % (AUTO) 6 % (2-9); NEUTROPHILS % (AUTO) 86 % (42-75); PLATELET COUNT 429 x10^3/uL (130-400); RED BLOOD COUNT 3.15 x10^6/uL (4.38-5.82); RED CELL DISTRIBUTION WIDTH 16.2 % (9.4-14.8)
[2020-08-24 04:59] LABS: ANION GAP 6 mmol/L (5-15); CALCIUM 8.8 mg/dL (8.5-10.1); CHLORIDE 120 mmol/L (98-107); CREATININE 1.97 mg/dL (0.7-1.3); TRIGLYCERIDES 278 mg/dL (50-200)
[2020-08-24] MEDS: HEPARIN 5,000 UNITS/ML, 1ML SQ SCH ×3 (05:02→21:43)
[2020-08-24] MEDS: CARVEDILOL 6.25 MG TABLET PO SCH ×2 (05:03→16:51)
[2020-08-24 05:53] LABS: MD SCAN
[2020-08-24] MEDS: ZIPRASIDONE 20 MG INJ IM SCH (07:27)
[2020-08-24] MEDS ORDERED: MIDAZOLAM 1 MG/ML, 2ML ONE ×2 (07:59→08:04)
[2020-08-24] MEDS ORDERED: FENTANYL PF 100 MCG/2ML IVPush ONE (08:00)
[2020-08-24] MEDS ORDERED: FENTANYL PF 100 MCG/2ML ONE (08:00)
[2020-08-24] MEDS ORDERED: MIDAZOLAM 1 MG/ML, 2ML IVPush ONE (08:00)
[2020-08-24] MEDS ORDERED: MIDAZOLAM 1 MG/ML, 5ML ONE (08:05)
[2020-08-24] MEDS ORDERED: MIDAZOLAM 1 MG/ML, 5ML IVPush ONE (08:30)
[2020-08-24] MEDS ORDERED: OXYcodone IR 5MG TABLET PO PRN (09:30)
[2020-08-24] MEDS ORDERED: QUETIAPINE 25MG TABLET PO PRN (09:30)
[2020-08-24] MEDS: FAMOTIDINE 20 MG/2 ML IVPush SCH (10:57)
[2020-08-24] MEDS: SODIUM CHLORIDE FLUSH 10ML SYR IVF SCH ×2 (10:57→20:00)
[2020-08-24] MEDS: ESCITALOPRAM 10MG TABLET PO SCH (10:57)
[2020-08-24] MEDS: BUPROPION 75 MG TABLET PO SCH ×2 (10:57→21:43)
[2020-08-24] MEDS: LACTOBACILLUS CHEW TABLET PO SCH ×3 (10:57→21:43)
[2020-08-24] MEDS: DOXYCYCLINE 50 MG/5 ML ORAL SUSP PO SCH ×2 (10:58→22:08)
[2020-08-24] MEDS: INSULIN GLARGINE 100 UNITS/ML, PEN SQ-INSULIN SCH ×2 (11:28→21:58)
[2020-08-24] MEDS: hydrALAzine 20 MG/ML, 1ML IV PRN (15:23)
[2020-08-24] MEDS: LABETALOL 5MG/ML, 20ML IVPush PRN (16:05)
[2020-08-24] MEDS ORDERED: FUROSEMIDE 40 MG/4 ML ONE (18:24)
[2020-08-24] MEDS: PROPOFOL 100 ML IV PRN ×2 (20:00→22:01)
[2020-08-24] MEDS: MIDAZOLAM HCL 50 MG in SODIUM CHLORIDE 0.9% 40 ML IV PRN (20:03)
[2020-08-24] MEDS: FENTANYL PF 2,500 MCG in SODIUM CHLORIDE 0.9% 200 ML IV PRN (20:18)
[2020-08-24] MEDS ORDERED: INSULIN GLARGINE 100 UNITS/ML, PEN SQ-INSULIN SCH (21:00)
[2020-08-25] MEDS: PROPOFOL 100 ML IV PRN ×7 (00:21→23:19)
[2020-08-25] MEDS: MIDAZOLAM HCL 100 MG in SODIUM CHLORIDE 0.9% 80 ML IV PRN ×2 (02:09→14:00)
[2020-08-25] MEDS: INSULIN LISPRO 100 UNITS/ML, PEN SQ-INSULIN SCH ×4 (03:13→20:26)
[2020-08-25] MEDS: HEPARIN 5,000 UNITS/ML, 1ML SQ SCH ×3 (03:13→20:16)
[2020-08-25 03:37] LABS: BASOPHILS % (AUTO) 1 % (0-1); EOSINOPHILS % (AUTO) 2 % (1-7); LYMPHOCYTES % (AUTO) 12 % (22-44); MEAN CORPUSCULAR HEMOGLOBIN 28.9 pg (27.5-34.5); MEAN PLATELET VOLUME 7.7 fL (7.4-10.4); MONOCYTES % (AUTO) 7 % (2-9); NEUTROPHILS % (AUTO) 79 % (42-75); PLATELET COUNT 410 x10^3/uL (130-400); RED CELL DISTRIBUTION WIDTH 16.5 % (9.4-14.8)
[2020-08-25 03:38] LABS: MD NO
[2020-08-25 03:45] LABS: ANION GAP 8 mmol/L (5-15); CALCIUM 8.8 mg/dL (8.5-10.1); CHLORIDE 116 mmol/L (98-107); CREATININE 2.03 mg/dL (0.7-1.3); TRIGLYCERIDES 381 mg/dL (50-200)
[2020-08-25] MEDS: LABETALOL 5MG/ML, 20ML IVPush PRN ×2 (05:52→14:48)
[2020-08-25] MEDS: CARVEDILOL 6.25 MG TABLET PO SCH (05:52)
[2020-08-25] MEDS: ESCITALOPRAM 10MG TABLET PO SCH (09:02)
[2020-08-25] MEDS: BUPROPION 75 MG TABLET PO SCH ×2 (09:03→20:18)
[2020-08-25] MEDS: LACTOBACILLUS CHEW TABLET PO SCH ×3 (09:03→20:17)
[2020-08-25] MEDS: OXYcodone IR 5MG TABLET PO SCH ×3 (09:04→20:16)
[2020-08-25] MEDS: FUROSEMIDE 40 MG/4 ML IV SCH (09:05)
[2020-08-25] MEDS: SODIUM CHLORIDE FLUSH 10ML SYR IVF SCH ×2 (09:05→20:17)
[2020-08-25] MEDS: FAMOTIDINE 20 MG/2 ML IVPush SCH (09:05)
[2020-08-25] MEDS: DOXYCYCLINE 50 MG/5 ML ORAL SUSP PO SCH ×2 (09:13→20:17)
[2020-08-25] MEDS: INSULIN GLARGINE 100 UNITS/ML, PEN SQ-INSULIN SCH ×2 (09:15→20:27)
[2020-08-25] MEDS: CARVEDILOL 12.5 MG TABLET PO SCH (17:12)
[2020-08-26] MEDS: INSULIN LISPRO 100 UNITS/ML, PEN SQ-INSULIN SCH ×4 (03:00→20:32)
[2020-08-26] MEDS: HEPARIN 5,000 UNITS/ML, 1ML SQ SCH ×3 (03:39→20:25)
[2020-08-26] MEDS: OXYcodone IR 5MG TABLET PO SCH ×4 (03:39→20:25)
[2020-08-26] MEDS: PROPOFOL 100 ML IV PRN ×6 (03:40→22:48)
[2020-08-26 05:00] LABS: BASOPHILS % (AUTO) 1 % (0-1); EOSINOPHILS % (AUTO) 4 % (1-7); LYMPHOCYTES % (AUTO) 12 % (22-44); MEAN CORPUSCULAR HEMOGLOBIN 28.1 pg (27.5-34.5); MEAN CORPUSCULAR HGB CONC 33.4 g/dL (33.2-36.2); MEAN PLATELET VOLUME 7.5 fL (7.4-10.4); MONOCYTES % (AUTO) 7 % (2-9); NEUTROPHILS % (AUTO) 76 % (42-75); PLATELET COUNT 446 x10^3/uL (130-400); RED BLOOD COUNT 3.43 x10^6/uL (4.38-5.82); RED CELL DISTRIBUTION WIDTH 16.3 % (9.4-14.8)
[2020-08-26 05:06] LABS: ANION GAP 8 mmol/L (5-15); CALCIUM 9.2 mg/dL (8.5-10.1); CHLORIDE 113 mmol/L (98-107); MD NO
[2020-08-26] MEDS: CARVEDILOL 12.5 MG TABLET PO SCH ×2 (06:25→17:31)
[2020-08-26] MEDS ORDERED: SCOPOLAMINE 1MG PATCH TD ONE (09:30)
[2020-08-26] MEDS: ESCITALOPRAM 10MG TABLET PO SCH (09:39)
[2020-08-26] MEDS: QUETIAPINE 25MG TABLET PO SCH ×2 (09:41→20:26)
[2020-08-26] MEDS: BUPROPION 75 MG TABLET PO SCH ×2 (09:41→20:26)
[2020-08-26] MEDS: SODIUM CHLORIDE FLUSH 10ML SYR IVF SCH ×2 (09:44→20:27)
[2020-08-26] MEDS: FAMOTIDINE 20 MG/2 ML IVPush SCH (09:44)
[2020-08-26] MEDS: INSULIN GLARGINE 100 UNITS/ML, PEN SQ-INSULIN SCH ×2 (09:44→20:33)
[2020-08-26] MEDS: FUROSEMIDE 40 MG/4 ML IV SCH (09:44)
[2020-08-26] MEDS: DOXYCYCLINE 50 MG/5 ML ORAL SUSP PO SCH (09:45)
[2020-08-26] MEDS: LACTOBACILLUS CHEW TABLET PO SCH ×3 (09:45→20:26)
[2020-08-26] MEDS: hydrALAzine 20 MG/ML, 1ML IV PRN (13:45)
[2020-08-27] MEDS: OXYcodone IR 5MG TABLET PO SCH ×4 (01:48→21:51)
[2020-08-27] MEDS: PROPOFOL 100 ML IV PRN ×2 (01:48→01:49)
[2020-08-27] MEDS: INSULIN LISPRO 100 UNITS/ML, PEN SQ-INSULIN SCH ×4 (03:00→21:00)
[2020-08-27] MEDS: HEPARIN 5,000 UNITS/ML, 1ML SQ SCH ×3 (04:07→21:52)
[2020-08-27 04:25] LABS: BASOPHILS % (AUTO) 1 % (0-1); EOSINOPHILS % (AUTO) 5 % (1-7); LYMPHOCYTES % (AUTO) 13 % (22-44); MD NO; MEAN CORPUSCULAR HEMOGLOBIN 27.8 pg (27.5-34.5); MEAN CORPUSCULAR HGB CONC 33.2 g/dL (33.2-36.2); MEAN PLATELET VOLUME 7.5 fL (7.4-10.4); MONOCYTES % (AUTO) 7 % (2-9); NEUTROPHILS % (AUTO) 74 % (42-75); PLATELET COUNT 404 x10^3/uL (130-400); RED BLOOD COUNT 3.29 x10^6/uL (4.38-5.82); RED CELL DISTRIBUTION WIDTH 16.2 % (9.4-14.8)
[2020-08-27 04:33] LABS: ANION GAP 6 mmol/L (5-15); CALCIUM 9.2 mg/dL (8.5-10.1); CHLORIDE 111 mmol/L (98-107)
[2020-08-27 04:34] LABS: CREATININE 1.76 mg/dL (0.7-1.3); TRIGLYCERIDES 347 mg/dL (50-200)
[2020-08-27] MEDS: CARVEDILOL 12.5 MG TABLET PO SCH ×2 (05:44→18:25)
[2020-08-27] MEDS: DEXMEDETOMIDINE 1,000 MCG in SODIUM CHLORIDE 0.9% 240 ML IV SCH ×3 (06:47→23:39)
[2020-08-27] MEDS: INSULIN GLARGINE 100 UNITS/ML, PEN SQ-INSULIN SCH ×2 (09:53→21:59)
[2020-08-27] MEDS: ESCITALOPRAM 10MG TABLET PO SCH (09:54)
[2020-08-27] MEDS: BUPROPION 75 MG TABLET PO SCH ×2 (09:54→21:52)
[2020-08-27] MEDS: QUETIAPINE 25MG TABLET PO SCH ×2 (09:54→21:52)
[2020-08-27] MEDS: LACTOBACILLUS CHEW TABLET PO SCH ×3 (09:54→21:51)
[2020-08-27] MEDS: SODIUM CHLORIDE FLUSH 10ML SYR IVF SCH ×2 (09:55→21:59)
[2020-08-27] MEDS: FUROSEMIDE 40 MG/4 ML IV SCH (09:55)
[2020-08-27] MEDS: FAMOTIDINE 20 MG/2 ML IVPush SCH (09:55)
[2020-08-28] MEDS: INSULIN LISPRO 100 UNITS/ML, PEN SQ-INSULIN SCH ×4 (03:00→21:00)
[2020-08-28] MEDS: OXYcodone IR 5MG TABLET PO SCH ×4 (03:25→20:20)
[2020-08-28] MEDS: HEPARIN 5,000 UNITS/ML, 1ML SQ SCH ×3 (04:45→21:10)
[2020-08-28 05:19] LABS: ANION GAP 5 mmol/L (5-15); CALCIUM 9.1 mg/dL (8.5-10.1); CHLORIDE 110 mmol/L (98-107)
[2020-08-28 05:20] LABS: CREATININE 1.72 mg/dL (0.7-1.3); TRIGLYCERIDES 164 mg/dL (50-200)
[2020-08-28 05:21] LABS: BASOPHILS % (AUTO) 0 % (0-1); EOSINOPHILS % (AUTO) 3 % (1-7); LYMPHOCYTES % (AUTO) 9 % (22-44); MEAN CORPUSCULAR HEMOGLOBIN 28.1 pg (27.5-34.5); MEAN CORPUSCULAR HGB CONC 33.3 g/dL (33.2-36.2); MEAN PLATELET VOLUME 7.7 fL (7.4-10.4); MONOCYTES % (AUTO) 6 % (2-9); NEUTROPHILS % (AUTO) 81 % (42-75); PLATELET COUNT 391 x10^3/uL (130-400); RED BLOOD COUNT 3.39 x10^6/uL (4.38-5.82); RED CELL DISTRIBUTION WIDTH 16.1 % (9.4-14.8)
[2020-08-28 05:34] LABS: MD NO
[2020-08-28] MEDS: CARVEDILOL 12.5 MG TABLET PO SCH ×2 (06:29→17:19)
[2020-08-28] MEDS: DEXMEDETOMIDINE 1,000 MCG in SODIUM CHLORIDE 0.9% 240 ML IV SCH ×3 (07:19→23:47)
[2020-08-28] MEDS: BUPROPION 75 MG TABLET PO SCH ×2 (09:19→21:11)
[2020-08-28] MEDS: LACTOBACILLUS CHEW TABLET PO SCH ×3 (09:19→21:11)
[2020-08-28] MEDS: ESCITALOPRAM 10MG TABLET PO SCH (09:20)
[2020-08-28] MEDS: FAMOTIDINE 20 MG/2 ML IVPush SCH (09:20)
[2020-08-28] MEDS: QUETIAPINE 25MG TABLET PO SCH ×2 (09:20→21:12)
[2020-08-28] MEDS: FUROSEMIDE 40 MG/4 ML IV SCH (09:20)
[2020-08-28] MEDS: SODIUM CHLORIDE FLUSH 10ML SYR IVF SCH ×2 (09:21→21:10)
[2020-08-28] MEDS: INSULIN GLARGINE 100 UNITS/ML, PEN SQ-INSULIN SCH ×2 (09:22→21:00)
[2020-08-29] MEDS: OXYcodone IR 5MG TABLET PO SCH ×3 (01:16→13:59)
[2020-08-29] MEDS: INSULIN LISPRO 100 UNITS/ML, PEN SQ-INSULIN SCH ×3 (03:00→15:00)
[2020-08-29] MEDS: HEPARIN 5,000 UNITS/ML, 1ML SQ SCH ×2 (04:26→12:40)
[2020-08-29 04:49] LABS: BASOPHILS % (AUTO) 0 % (0-1); EOSINOPHILS % (AUTO) 3 % (1-7); LYMPHOCYTES % (AUTO) 11 % (22-44); MEAN CORPUSCULAR HGB CONC 33.3 g/dL (33.2-36.2); MEAN PLATELET VOLUME 7.7 fL (7.4-10.4); MONOCYTES % (AUTO) 6 % (2-9); NEUTROPHILS % (AUTO) 80 % (42-75); PLATELET COUNT 373 x10^3/uL (130-400); RED BLOOD COUNT 3.55 x10^6/uL (4.38-5.82); RED CELL DISTRIBUTION WIDTH 16.6 % (9.4-14.8)
[2020-08-29 05:05] LABS: CHLORIDE 108 mmol/L (98-107); MD NO
[2020-08-29 05:11] LABS: ANION GAP 3 mmol/L (5-15); CALCIUM 9.2 mg/dL (8.5-10.1); CREATININE 1.85 mg/dL (0.7-1.3)
[2020-08-29] MEDS: CARVEDILOL 12.5 MG TABLET PO SCH ×2 (05:59→17:10)
[2020-08-29] MEDS: hydrALAzine 20 MG/ML, 1ML IV PRN (06:36)
[2020-08-29] MEDS: LACTOBACILLUS CHEW TABLET PO SCH ×2 (08:17→17:10)
[2020-08-29] MEDS: ESCITALOPRAM 10MG TABLET PO SCH (08:17)
[2020-08-29] MEDS: QUETIAPINE 25MG TABLET PO SCH (08:18)
[2020-08-29] MEDS: SODIUM CHLORIDE FLUSH 10ML SYR IVF SCH (08:19)
[2020-08-29] MEDS: FAMOTIDINE 20 MG/2 ML IVPush SCH (08:19)
[2020-08-29] MEDS: BUPROPION 75 MG TABLET PO SCH (08:19)
[2020-08-29] MEDS ORDERED: INSULIN GLARGINE 100 UNITS/ML, PEN SQ-INSULIN SCH ×2 (09:00)
[2020-08-29] MEDS ORDERED: GLYCOPYRROLATE 1 MG TABLET PO PRN (09:00)
[2020-08-29] MEDS: hydrOXyzine 10MG TABLET PO SCH ×2 (09:29→17:10)
[2020-08-29] MEDS: LABETALOL 5MG/ML, 20ML IVPush PRN (09:55)
[2020-08-29] MEDS ORDERED: HALOPERIDOL 1 MG TABLET PO PRN (19:00)
[2020-08-29] MEDS ORDERED: FAMOTIDINE 20 MG/2 ML IVPush SCH (21:00)
== END 2020-08-29 19:15 | disposition left against medical advice (07) | DRG 4 ==
LOC: EDBD 23:54 → ED 08-04 00:20 → MERGE 08-04 00:20 → EDIP 08-04 02:06 → CCU 08-04 03:45 → 4EST 08-29 13:17
PROVIDERS: ADMIT Family Medicine; ATTEND Family Medicine
PROC: 0BH17EZ Insertion of Endotracheal Airway into Trachea, Via Natural or Artificial Opening (ICD-10-PCS; principal; 2020-08-03)
PROC: 5A12012 Performance of Cardiac Output, Single, Manual (ICD-10-PCS; 2020-08-03)
PROC: 5A1955Z Respiratory Ventilation, Greater than 96 Consecutive Hours (ICD-10-PCS; 2020-08-03)
PROC: 0T9B70Z Drainage of Bladder with Drainage Device, Via Natural or Artificial Opening (ICD-10-PCS; 2020-08-04)
PROC: 0B9D8ZZ Drainage of Right Middle Lung Lobe, Via Natural or Artificial Opening Endoscopic (ICD-10-PCS; 2020-08-06)
PROC: 0B9F8ZZ Drainage of Right Lower Lung Lobe, Via Natural or Artificial Opening Endoscopic (ICD-10-PCS; 2020-08-06)
PROC: 0B9J8ZZ Drainage of Left Lower Lung Lobe, Via Natural or Artificial Opening Endoscopic (ICD-10-PCS; 2020-08-06)
PROC: 0B9H8ZZ Drainage of Lung Lingula, Via Natural or Artificial Opening Endoscopic (ICD-10-PCS; 2020-08-06)
PROC: 02HV33Z Insertion of Infusion Device into Superior Vena Cava, Percutaneous Approach (ICD-10-PCS; 2020-08-14)
PROC: B548ZZA Ultrasonography of Superior Vena Cava, Guidance (ICD-10-PCS; 2020-08-14)
PROC: 5A1955Z Respiratory Ventilation, Greater than 96 Consecutive Hours (ICD-10-PCS; 2020-08-15)
PROC: 0BH17EZ Insertion of Endotracheal Airway into Trachea, Via Natural or Artificial Opening (ICD-10-PCS; 2020-08-15)
PROC: 0B9J8ZZ Drainage of Left Lower Lung Lobe, Via Natural or Artificial Opening Endoscopic (ICD-10-PCS; 2020-08-18)
PROC: 0B9F8ZZ Drainage of Right Lower Lung Lobe, Via Natural or Artificial Opening Endoscopic (ICD-10-PCS; 2020-08-18)
PROC: 0B113F4 Bypass Trachea to Cutaneous with Tracheostomy Device, Percutaneous Approach (ICD-10-PCS; 2020-08-21)
PROC: 0BJ08ZZ Inspection of Tracheobronchial Tree, Via Natural or Artificial Opening Endoscopic (ICD-10-PCS; 2020-08-21)
PROC: 0DH63UZ Insertion of Feeding Device into Stomach, Percutaneous Approach (ICD-10-PCS; 2020-08-22)
DX: A41.9 Sepsis, unspecified organism (principal); E43 Unspecified severe protein-calorie malnutrition; G92 Toxic encephalopathy; I46.9 Cardiac arrest, cause unspecified; J80 Acute respiratory distress syndrome; N17.0 Acute kidney failure with tubular necrosis; J15.212 Pneumonia due to Methicillin resistant Staphylococcus aureus; E87.0 Hyperosmolality and hypernatremia; I82.612 Acute embolism and thrombosis of superficial veins of left upper extremity; N18.4 Chronic kidney disease, stage 4 (severe); F31.30 Bipolar disorder, current episode depressed, mild or moderate severity, unspecified; B37.89 Other sites of candidiasis; Z20.822 Contact with and (suspected) exposure to COVID-19; B95.1 Streptococcus, group B, as the cause of diseases classified elsewhere; D64.9 Anemia, unspecified; D69.6 Thrombocytopenia, unspecified; E11.22 Type 2 diabetes mellitus with diabetic chronic kidney disease; E11.43 Type 2 diabetes mellitus with diabetic autonomic (poly)neuropathy; E11.649 Type 2 diabetes mellitus with hypoglycemia without coma; E66.01 Morbid (severe) obesity due to excess calories; E78.1 Pure hyperglyceridemia; E83.41 Hypermagnesemia; E87.6 Hypokalemia; F12.90 Cannabis use, unspecified, uncomplicated; F15.90 Other stimulant use, unspecified, uncomplicated; F41.9 Anxiety disorder, unspecified; F90.9 Attention-deficit hyperactivity disorder, unspecified type; I25.10 Atherosclerotic heart disease of native coronary artery without angina pectoris; I27.20 Pulmonary hypertension, unspecified; K31.84 Gastroparesis; R74.01 Elevation of levels of liver transaminase levels; R65.20 Severe sepsis without septic shock; E11.65 Type 2 diabetes mellitus with hyperglycemia; R13.12 Dysphagia, oropharyngeal phase; F43.10 Post-traumatic stress disorder, unspecified; I12.9 Hypertensive chronic kidney disease with stage 1 through stage 4 chronic kidney disease, or unspecified chronic kidney disease; E78.5 Hyperlipidemia, unspecified; F17.200 Nicotine dependence, unspecified, uncomplicated; Z79.4 Long term (current) use of insulin; Z79.899 Other long term (current) drug therapy; Z68.31 Body mass index [BMI] 31.0-31.9, adult; Z82.5 Family history of asthma and other chronic lower respiratory diseases; Z82.49 Family history of ischemic heart disease and other diseases of the circulatory system; Z83.3 Family history of diabetes mellitus
CPT/HCPCS: 36415; 36600; 74018; 74230; 84145; 87106; 96374; 96375; 99291; 99292; J3490; J7042; J7121; 31622; 36573; 71045; 71250; 71275; 74174; 74176; 80047; 80048; 80053; 80076; 80202; 80299; 80307; 80320; 80329; 81001; 82150; 82550; 82803; 82962; 83605; 83690; 83735; 83880; 84100; 84132; 84478; 84484; 85025; 85379; 85520; 87040; 87070; 87077; 87081; 87086; 87147; 87186; 87205; 87324; 87635; 92950; 93005; 93306; 94002; 94003; 94150; 94640; 94690; B4087; G0378; J0295; J0456; J0696; J1644; J1940; J2185; J2250; J2543; J2704; J3010; J3370; J3486; J7030; Q9967; C1751; C9113; G0480; J0282; J0360; J1450; J1815; J2060; J2765; J7040; J7050; J7060; U0003

== ENCOUNTER 2020-08-30 15:59 | Inpatient (IN) | payer MEDICAID ==
[~2020-08-30] VITALS: Ht 180.3 cm; Wt 98.6 kg
[~2020-08-30 15:59] MED LIST changes: +ALLO300T PO; +ATOR-2 PO; +BUPR150T73 PO; -ETOMIDATE 20 MG/10 ML ONE; +GABA600T7 PO; +METO25TA35 PO; +POTA10TA6 PO; -PROPOFOL 10 MG/ML, 100ML IV ONE; -ROCURONIUM 10MG/ML,5ML ONE
--- NOTE | 2020-08-30 16:33 | NUR ---
PT TAKEN BACK TO ROOM FROM LOBBY VIA WHEELCHAIR. PT LEFT FROM ICU AMA YESTERDAY. PT WAS ADMITTED FOR PNA, CODED AND WAS INTUBATED AND LATER TRACHED WITH G-TUBE. PT STATED THAT HE TRACHE WAS CAPPED YESTERDAY. PT STATED THAT HE LEFT AMA YESTERDAY BECAUSE THE NURSES WOULDNT LET HIM GO TO THE BATHROOM BY HIMSELF. PT RETURNED TO ER TODAY BECAUSE HE "WANTS TUBES OUT." PT PLACED ON 2L NC. PT DENIES ANY SOB, CP OR FEVER.
[2020-08-30 16:53] LABS: BASOPHILS % (AUTO) 1 % (0-1); EOSINOPHILS % (AUTO) 0 % (1-7); LYMPHOCYTES % (AUTO) 9 % (22-44); MEAN CORPUSCULAR HEMOGLOBIN 27.9 pg (27.5-34.5); MEAN CORPUSCULAR HGB CONC 32.8 g/dL (33.2-36.2); MEAN PLATELET VOLUME 7.2 fL (7.4-10.4); MONOCYTES % (AUTO) 8 % (2-9); NEUTROPHILS % (AUTO) 82 % (42-75); PLATELET COUNT 436 x10^3/uL (130-400); RED BLOOD COUNT 4.07 x10^6/uL (4.38-5.82); RED CELL DISTRIBUTION WIDTH 16.6 % (9.4-14.8)
[2020-08-30 16:56] LABS: MD NO
[2020-08-30] MEDS ORDERED: LORazepam 2 MG/ML, 1ML IVPush ONE (17:00)
[2020-08-30 17:04] LABS: ALANINE AMINOTRANSFERASE 30 U/L (12-78); ALBUMIN 3.2 g/dL (3.4-5.0); ANION GAP 9 mmol/L (5-15); CALCIUM 9.5 mg/dL (8.5-10.1); CHLORIDE 103 mmol/L (98-107); CREATININE 1.74 mg/dL (0.7-1.3)
[2020-08-30 17:06] LABS: ALKALINE PHOSPHATASE 142 U/L (45-117); BILIRUBIN,TOTAL 0.7 mg/dL (0.2-1.0); TOTAL PROTEIN 7.3 g/dL (6.4-8.2)
[2020-08-30] MEDS ORDERED: LORazepam 2 MG/ML, 1ML ONE (17:26)
[2020-08-30] MEDS ORDERED: ONDANSETRON ODT 4 MG PO PRN (17:30)
[2020-08-30] MEDS ORDERED: ACETAMINOPHEN 325 MG TABLET PO PRN (17:30)
[2020-08-30] MEDS ORDERED: VALSARTAN 160 MG TABLET PO SCH (17:30)
[2020-08-30] MEDS ORDERED: HEPARIN 5,000 UNITS/ML, 1ML SQ SCH (17:30)
[2020-08-30] MEDS: OXYcodone IR 5MG TABLET PO SCH ×2 (17:30→23:19)
[2020-08-30] MEDS ORDERED: DEXTROSE 4 GM TAB.CHEW PO PRN (17:30)
[2020-08-30] MEDS ORDERED: BISACODYL 10 MG SUPP PR PRN (17:30)
[2020-08-30] MEDS ORDERED: hydrALAzine 20 MG/ML, 1ML IVPush PRN (17:30)
[2020-08-30] MEDS ORDERED: HALOPERIDOL 5 MG/ML IVPush PRN (17:30)
[2020-08-30] MEDS ORDERED: ENALAPRILAT 1.25 MG/ML, 2ML IVPush PRN (17:30)
[2020-08-30] MEDS ORDERED: GLUCAGON 1 MG IM PRN (17:30)
[2020-08-30] MEDS ORDERED: ONDANSETRON 2MG/ML, 2ML IVPush PRN (17:30)
[2020-08-30] MEDS ORDERED: DEXTROSE 50%, 50ML SYRINGE IVPush PRN (17:30)
--- NOTE | 2020-08-30 17:31 | NUR ---
PT VERY ANXIOUS AND UNCOOPERATIVE. PT VOMITED ACROSS THE ROOM. IV INITIATED.
[2020-08-30] MEDS ORDERED: CARVEDILOL 12.5 MG TABLET PO SCH (18:00)
--- NOTE | 2020-08-30 18:25 | NUR ---
REPORT GIVEN TO OPAL SCHNEIDER.
[2020-08-30 19:00] VITALS: BP 190/98
[2020-08-30] MEDS ORDERED: LACTULOSE 10 GM/15 ML UDC PO SCH (21:00)
[2020-08-30] MEDS ORDERED: SODIUM CHLORIDE FLUSH 10ML SYR IVF SCH (21:00)
[2020-08-30] MEDS ORDERED: BUPROPION SR 150 MG TABLET PO SCH (21:00)
[2020-08-30] MEDS ORDERED: ATORVASTATIN 80 MG TABLET PO SCH (21:00)
[2020-08-30] MEDS ORDERED: QUETIAPINE 25MG TABLET PO SCH (21:00)
[2020-08-30] MEDS ORDERED: INSULIN LISPRO 100 UNITS/ML, PEN SQ-INSULIN SCH (21:00)
[2020-08-30] MEDS ORDERED: INSULIN GLARGINE 100 UNITS/ML, PEN SQ-INSULIN SCH (21:00)
[2020-08-31 01:49] VITALS: BP 189/96
[2020-08-31 02:20] VITALS: BP 184/102
[2020-08-31 03:06] VITALS: BP 179/98
[2020-08-31 03:45] VITALS: BP 186/92
[2020-08-31] MEDS ORDERED: PANTOPRAZOLE 40MG TABLET PO SCH (07:30)
[2020-08-31] MEDS ORDERED: AMLODIPINE 10 MG TAB PO SCH (09:00)
[2020-08-31] MEDS ORDERED: SENNA/DOCUSATE TABLET PO SCH (09:00)
[2020-08-31] MEDS ORDERED: ESCITALOPRAM 10MG TABLET PO SCH (09:00)
[2020-08-31] MEDS ORDERED: ATORVASTATIN 10 MG TABLET PO SCH (21:00)
== END 2020-08-31 07:03 | disposition left against medical advice (07) | DRG 304 ==
LOC: ED 17:13 → 4EST 18:52 → ED 22:40 → 4EST 22:40
PROVIDERS: ADMIT Student in an Organized Health Care Education/Training Program; ATTEND Student in an Organized Health Care Education/Training Program
DX: I16.0 Hypertensive urgency (principal); I46.9 Cardiac arrest, cause unspecified; J18.9 Pneumonia, unspecified organism; J96.01 Acute respiratory failure with hypoxia; Z53.29 Procedure and treatment not carried out because of patient's decision for other reasons; I12.9 Hypertensive chronic kidney disease with stage 1 through stage 4 chronic kidney disease, or unspecified chronic kidney disease; F41.9 Anxiety disorder, unspecified; E11.22 Type 2 diabetes mellitus with diabetic chronic kidney disease; D64.9 Anemia, unspecified; K21.9 Gastro-esophageal reflux disease without esophagitis; N18.9 Chronic kidney disease, unspecified; Z93.0 Tracheostomy status; Z93.1 Gastrostomy status; Z90.49 Acquired absence of other specified parts of digestive tract; Z91.14 Patient's other noncompliance with medication regimen; Z79.899 Other long term (current) drug therapy
CPT/HCPCS: 36415; 71045; 80053; 82962; 85025; 93005; G0378; J1644; J0360; J1815; J2060

== ENCOUNTER 2020-09-03 09:38 | Emergency (ER) | payer MEDICAID ==
[~2020-09-03] VITALS: Ht 172.7 cm; Wt 98.0 kg
[2020-09-03 09:52] VITALS: BP 141/85
== END 2020-09-03 10:27 | disposition left against medical advice (07) ==
LOC: ED 10:00
DX: K94.23 Gastrostomy malfunction (principal); Z53.21 Procedure and treatment not carried out due to patient leaving prior to being seen by health care provider

== ENCOUNTER 2020-09-05 23:56 | Emergency (ER) | payer MEDICAID ==
[~2020-09-05] VITALS: Ht 180.3 cm; Wt 98.7 kg
[2020-09-06] VITALS: BP 153/90
--- NOTE | 2020-09-06 00:10 | NUR ---
PT BROUGHT TO ROOM 2 BY WHEELCHAIR. COMPLAINING OF RIGHT EAR PAIN. PT HAS PEG TUBE, AND PER PT HE HAD A CARDIAC ARREST A FEW WEEKS AGO. NO C/O CARDIAC ISSUES TODAY.
[2020-09-06] MEDS ORDERED: AMOXICILLIN 500 MG CAPSULE PO ONE (00:30)
[2020-09-06] MEDS ORDERED: AMOXICILLIN 500 MG CAPSULE ONE (00:33)
--- NOTE | 2020-09-06 00:45 | NUR ---
PT MEDICATED PER NON DESTRUCTIVE TESTING SUPERVISOR ORDER, AND F/U AND D/C INSTRUCTIONS GIVEN TO PT AND HIS AND THEY V/U. PRESCRIPTION GIVEN TO PT AND HE V/U.
== END 2020-09-06 00:47 | disposition home or self-care (01) ==
LOC: ED 09-06 00:38
DX: H65.01 Acute serous otitis media, right ear (principal); H92.01 Otalgia, right ear; E11.22 Type 2 diabetes mellitus with diabetic chronic kidney disease; I12.9 Hypertensive chronic kidney disease with stage 1 through stage 4 chronic kidney disease, or unspecified chronic kidney disease; N18.9 Chronic kidney disease, unspecified
CPT/HCPCS: 99283

== ENCOUNTER 2020-09-07 02:48 | Emergency (ER) | payer MEDICAID ==
[~2020-09-07] VITALS: Ht 180.3 cm; Wt 96.0 kg
[2020-09-07 03:42] VITALS: BP 153/83
[2020-09-07] MEDS ORDERED: NEOSPORIN OINT. PKT 1 PACKET ONE (04:03)
== END 2020-09-07 04:37 | disposition home or self-care (01) ==
LOC: ED 03:28
DX: S80.01XA Contusion of right knee, initial encounter (principal); S00.81XA Abrasion of other part of head, initial encounter; E11.22 Type 2 diabetes mellitus with diabetic chronic kidney disease; I12.9 Hypertensive chronic kidney disease with stage 1 through stage 4 chronic kidney disease, or unspecified chronic kidney disease; N18.9 Chronic kidney disease, unspecified; Z90.49 Acquired absence of other specified parts of digestive tract; W07.XXXA Fall from chair, initial encounter; Y93.89 Activity, other specified; Y92.89 Other specified places as the place of occurrence of the external cause; Y99.8 Other external cause status
CPT/HCPCS: 70450; 99284

== ENCOUNTER 2020-09-13 09:21 | Emergency (ER) | payer MEDICAID ==
[~2020-09-13] VITALS: Ht 180.3 cm; Wt 98.0 kg
--- NOTE | 2020-09-13 10:24 | NUR ---
HARDWARE ENGINEER: PT TO ROOM FROM LOBBY
--- NOTE | 2020-09-13 11:00 | NUR ---
AT BEDSIDE FOR ED EVAL.
[2020-09-13] MEDS ORDERED: HYDROmorphone 1 MG/ML, 1ML INJ ONE (11:25)
[2020-09-13] MEDS ORDERED: HYDROmorphone 1 MG/ML, 1ML INJ IM ONE (11:30)
--- NOTE | 2020-09-13 11:30 | NUR ---
PT MEDICATED PER EMAR. TAKEN TO XR.
--- NOTE | 2020-09-13 12:15 | NUR ---
PT REPORS PAIN IMPROVED SINCE CORPORATE EVENTS DIRECTOR. ALL TESTS RESULTED. PT IS UP FOR RECHECK AT THIS TIME.
--- NOTE | 2020-09-13 13:51 | NUR ---
PT RESTING ON GURNEY W/ CALL LIGHT IN REACH AND SIDE RAILS UPX2. RESP EVEN AND UNLABORED, NADN. AWAITING MRI.
--- NOTE | 2020-09-13 14:39 | NUR ---
PT IN MRI
--- NOTE | 2020-09-13 16:35 | NUR ---
PT DID NOT WISH TO STAY TO GO OVER MRI W/ . COPY PRINTED AND GIVEN TO PT FOR F/U CARE. PT UNDERSTANDS LEAVING PRIOR TO DC, DOES NOT WANT TO WAIT FOR DC PPWK. WHEELED TO DC DESK BY FAMILY. RESP EVEN AND UNLABORED, DOMITILA.
[2020-09-13 16:36] VITALS: BP 142/97
== END 2020-09-13 17:08 | disposition home or self-care (01) ==
LOC: ED 13:43
DX: G89.11 Acute pain due to trauma (principal); M25.561 Pain in right knee; I10 Essential (primary) hypertension; E11.9 Type 2 diabetes mellitus without complications; Z90.49 Acquired absence of other specified parts of digestive tract; X58.XXXA Exposure to other specified factors, initial encounter; Y93.89 Activity, other specified; Y92.89 Other specified places as the place of occurrence of the external cause; Y99.8 Other external cause status
CPT/HCPCS: 29505; 73564; 73721; 96372; 99284; J1170

== ENCOUNTER 2020-09-17 16:08 | Emergency (ER) | payer MEDICAID ==
[~2020-09-17] VITALS: Ht 180.3 cm; Wt 92.4 kg
[2020-09-17 16:09] VITALS: BP 167/95
== END 2020-09-17 17:24 | disposition home or self-care (01) ==
LOC: ED 17:15
DX: H66.001 Acute suppurative otitis media without spontaneous rupture of ear drum, right ear (principal); E11.22 Type 2 diabetes mellitus with diabetic chronic kidney disease; I12.9 Hypertensive chronic kidney disease with stage 1 through stage 4 chronic kidney disease, or unspecified chronic kidney disease; N18.9 Chronic kidney disease, unspecified; Z90.49 Acquired absence of other specified parts of digestive tract
CPT/HCPCS: 99283

== ENCOUNTER 2020-09-23 23:25 | Emergency (ER) | payer MEDICAID ==
[~2020-09-23] VITALS: Ht 180.3 cm; Wt 96.0 kg
[2020-09-24] MEDS ORDERED: SODIUM CHLORIDE FLUSH 10ML SYR IVF ONE ×2 (01:00→01:30)
[2020-09-24] MEDS ORDERED: ONDANSETRON 2MG/ML, 2ML ONE (01:00)
[2020-09-24] MEDS ORDERED: MORPHINE SULFATE 4 MG/ML, 1ML ONE (01:00)
[2020-09-24] MEDS ORDERED: MORPHINE SULFATE 4 MG/ML, 1ML IVPush PRN ×2 (01:00→01:30)
[2020-09-24] MEDS ORDERED: ONDANSETRON 2MG/ML, 2ML IVPush ONE ×2 (01:00→01:30)
[2020-09-24] MEDS ORDERED: OXYcodone/APAP 10/325MG TABLET PO ONE (01:30)
[2020-09-24] MEDS ORDERED: OFLOXACIN EAR DROPS 0.3%, 5ML OTIC ONE (02:00)
[2020-09-24 02:27] VITALS: BP 120/67
== END 2020-09-24 02:41 | disposition home or self-care (01) ==
LOC: ED 09-24 00:50
DX: H60.501 Unspecified acute noninfective otitis externa, right ear (principal); H92.01 Otalgia, right ear; E11.9 Type 2 diabetes mellitus without complications; I12.9 Hypertensive chronic kidney disease with stage 1 through stage 4 chronic kidney disease, or unspecified chronic kidney disease; N18.9 Chronic kidney disease, unspecified; Z90.49 Acquired absence of other specified parts of digestive tract
CPT/HCPCS: 82962; 96374; 96375; 99284; J2270; J2405

== ENCOUNTER 2020-10-09 11:57 | Emergency (ER) | payer MEDICAID ==
[~2020-10-09] VITALS: Ht 180.3 cm; Wt 95.0 kg
--- NOTE | 2020-10-09 12:48 | NUR ---
CAR MOVER: PT TO ROOM FROM LOBBY VIA W/C
[2020-10-09 12:57] LABS: BASOPHILS % (AUTO) 1 % (0-1); EOSINOPHILS % (AUTO) 4 % (1-7); LYMPHOCYTES % (AUTO) 11 % (22-44); MEAN CORPUSCULAR HEMOGLOBIN 27.1 pg (27.5-34.5); MEAN CORPUSCULAR HGB CONC 33.8 g/dL (33.2-36.2); MEAN PLATELET VOLUME 6.8 fL (7.4-10.4); MONOCYTES % (AUTO) 6 % (2-9); NEUTROPHILS % (AUTO) 79 % (42-75); PLATELET COUNT 289 x10^3/uL (130-400); RED BLOOD COUNT 5.03 x10^6/uL (4.38-5.82); RED CELL DISTRIBUTION WIDTH 15.9 % (9.4-14.8)
--- NOTE | 2020-10-09 13:00 | NUR ---
COUGH AND SOB X1 DAY. DC AND PNA 07/2020. PT THINKS HE ASPIRATED AND SOMETHING IS IN HIS LUNGS. PT OBSERVED TO BE ANXIOUS. HE IS ANGRY ABOUT HIS LAST STAY HERE STATING "I LEFT AMA, BECAUSE SOMEONE WAS WATCHING ME PEE, AND I THOUGHT I WAS GOING TO " PT POSTIONED TO COMFORT. ATTACHED TO MONITORS. VSS. RAMESH. AT BEDSIDE.
[2020-10-09 13:08] LABS: MD NO
[2020-10-09 13:10] LABS: ALANINE AMINOTRANSFERASE 26 U/L (12-78); ANION GAP 9 mmol/L (5-15); CALCIUM 9.7 mg/dL (8.5-10.1); CHLORIDE 106 mmol/L (98-107); CREATININE 2.56 mg/dL (0.7-1.3)
[2020-10-09 13:14] LABS: ALKALINE PHOSPHATASE 197 U/L (45-117); BILIRUBIN,TOTAL 0.5 mg/dL (0.2-1.0); TOTAL PROTEIN 8.1 g/dL (6.4-8.2); TROPONIN I < 0.015 ng/mL (0.000-0.045)
--- NOTE | 2020-10-09 13:23 | NUR ---
TO BEDSIDE FOR EVALUTION
[2020-10-09] MEDS ORDERED: SODIUM CHLORIDE FLUSH 10ML SYR IVF ONE (13:30)
[2020-10-09] MEDS ORDERED: methylPREDNISolone SOD SUCC 125 MG/2 ML IV ONE (13:30)
[2020-10-09] MEDS ORDERED: SODIUM CHLORIDE 0.9% 1,000ML IVBOLUS ONE (13:30)
--- NOTE | 2020-10-09 13:50 | NUR ---
pt medicated per emar. vss. stevann.
[2020-10-09] MEDS ORDERED: methylPREDNISolone SOD SUCC 125 MG/2 ML ONE (14:12)
--- NOTE | 2020-10-09 14:26 | NUR ---
TASK RN: PATIENT MEDICATED PER eMAR, DOMITILA, GEOVANNA, AT BEDSIDE, CALL LIGHT WITHIN REACH, NO FURTHER NEEDS AT THIS TIME.
[2020-10-09] MEDS ORDERED: ALBUTEROL/IPRATROPIUM 2.5MG/0.5MG, 3 ML ONE (14:59)
[2020-10-09] MEDS ORDERED: ALBUTEROL/IPRATROPIUM 2.5MG/0.5MG, 3 ML NPPB ONE (15:00)
[2020-10-09 15:16] VITALS: BP 148/77
--- NOTE | 2020-10-09 15:19 | NUR ---
pt passed road test. vss. acevedo
== END 2020-10-09 16:12 | disposition home or self-care (01) ==
LOC: ED 12:40
DX: J45.909 Unspecified asthma, uncomplicated (principal); Z20.822 Contact with and (suspected) exposure to COVID-19; J18.9 Pneumonia, unspecified organism; I12.9 Hypertensive chronic kidney disease with stage 1 through stage 4 chronic kidney disease, or unspecified chronic kidney disease; N18.9 Chronic kidney disease, unspecified; R07.9 Chest pain, unspecified; E11.22 Type 2 diabetes mellitus with diabetic chronic kidney disease; Z90.49 Acquired absence of other specified parts of digestive tract; Z87.891 Personal history of nicotine dependence
CPT/HCPCS: 36415; 71045; 80053; 83605; 83880; 84145; 84484; 85025; 87040; 93005; 94640; 96361; 96374; 99285; J2930; J7030; U0003; U0005

== ENCOUNTER 2020-10-14 16:36 | Emergency (ER) | payer MEDICAID ==
[~2020-10-14] VITALS: Ht 180.3 cm; Wt 97.6 kg
[2020-10-14] MEDS ORDERED: SODIUM CHLORIDE 0.9% 1,000ML IVBOLUS ONE (17:30)
[2020-10-14 17:32] LABS: PH, VENOUS 7.349 pH (7.320-7.420)
[2020-10-14 17:33] LABS: O2 FLOW ROOM AIR L/min
[2020-10-14 17:34] LABS: BASOPHILS % (AUTO) 1 % (0-1); EOSINOPHILS % (AUTO) 0 % (1-7); LYMPHOCYTES % (AUTO) 9 % (22-44); MEAN CORPUSCULAR HEMOGLOBIN 27.4 pg (27.5-34.5); MEAN PLATELET VOLUME 7.4 fL (7.4-10.4); MONOCYTES % (AUTO) 2 % (2-9); NEUTROPHILS % (AUTO) 88 % (42-75); PLATELET COUNT 372 x10^3/uL (130-400); RED BLOOD COUNT 4.97 x10^6/uL (4.38-5.82)
[2020-10-14 17:48] LABS: ALKALINE PHOSPHATASE 214 U/L (45-117); BILIRUBIN,TOTAL 0.3 mg/dL (0.2-1.0); TOTAL PROTEIN 7.6 g/dL (6.4-8.2)
[2020-10-14 17:55] LABS: ALANINE AMINOTRANSFERASE 23 U/L (12-78); ALBUMIN 3.9 g/dL (3.4-5.0); ANION GAP 11 mmol/L (5-15); CALCIUM 9.2 mg/dL (8.5-10.1); CHLORIDE 104 mmol/L (98-107); CREATININE 3.08 mg/dL (0.7-1.3)
[2020-10-14 18:09] LABS: MD SCAN
--- NOTE | 2020-10-14 18:15 | NUR ---
scenic artist: pt from lobby to room 36
[2020-10-14 18:19] LABS: ACETONE, SERUM Trace (Negative)
--- NOTE | 2020-10-14 18:50 | NUR ---
REPORT TO OAPL OH
--- NOTE | 2020-10-14 18:50 | NUR ---
RECEIVED REPORT FROM RACHAEL JOSEPH
--- NOTE | 2020-10-14 19:15 | NUR ---
preceptor rn: iv placed and fluids running at this time. pt nad, Patient is resting comfortably in bed. Bed in lowest, rails engaged, call light on lap. at bs. denies additional needs at this time. updated on poc. WCTM.
[2020-10-14] MEDS ORDERED: INSULIN GLARGINE 100 UNITS/ML, PEN SQ-INSULIN ONE (19:30)
[2020-10-14] MEDS ORDERED: INSULIN REGULAR 100 UNITS/ML, 3ML VIAL SQ-INSULIN ONE (19:30)
[2020-10-14] MEDS ORDERED: INSULIN SINGLE DOSE, ER ONE (20:03)
[2020-10-14 20:30] LABS: MICROSCOPIC AUTO
[2020-10-14 21:41] VITALS: BP 142/85
--- NOTE | 2020-10-14 22:02 | NUR ---
Patient given discharge instructions and they have confirmed that they understand the instructions. Patient ambulatory with steady gait. PT STATING THAT HE WAS FEELING A LOT BETTER. PT BLOOD GLUCOSE TESTED BEFORE DC. EDUCATED ON IMPORTANCE OF DIABETES CONTROL.
== END 2020-10-14 22:05 | disposition home or self-care (01) ==
LOC: ED 21:17
DX: E86.0 Dehydration (principal); E11.65 Type 2 diabetes mellitus with hyperglycemia; R42 Dizziness and giddiness; J44.9 Chronic obstructive pulmonary disease, unspecified; E11.22 Type 2 diabetes mellitus with diabetic chronic kidney disease; I12.9 Hypertensive chronic kidney disease with stage 1 through stage 4 chronic kidney disease, or unspecified chronic kidney disease; N18.9 Chronic kidney disease, unspecified; Z87.891 Personal history of nicotine dependence; Z90.49 Acquired absence of other specified parts of digestive tract
CPT/HCPCS: 36415; 80053; 81001; 82010; 82803; 82962; 83930; 85025; 93005; 96360; 96361; 99284; J1815; J7030

== ENCOUNTER 2020-11-16 01:08 | Emergency (ER) | payer MEDICAID ==
[~2020-11-16] VITALS: Ht 182.9 cm; Wt 106.0 kg
[2020-11-16 01:13] VITALS: BP 137/73
[2020-11-16] MEDS ORDERED: ALBUTEROL/IPRATROPIUM 2.5MG/0.5MG, 3 ML ONE ×2 (02:20→02:27)
[2020-11-16] MEDS ORDERED: ALBUTEROL/IPRATROPIUM 2.5MG/0.5MG, 3 ML NPPB ONE (02:30)
--- NOTE | 2020-11-16 02:30 | NUR ---
neb tx started at this time
[2020-11-16 02:49] LABS: BASOPHILS % (AUTO) 1 % (0-1); EOSINOPHILS % (AUTO) 3 % (1-7); LYMPHOCYTES % (AUTO) 22 % (22-44); MEAN CORPUSCULAR HEMOGLOBIN 27.4 pg (27.5-34.5); MEAN CORPUSCULAR HGB CONC 33.2 g/dL (33.2-36.2); MEAN PLATELET VOLUME 7.2 fL (7.4-10.4); MONOCYTES % (AUTO) 8 % (2-9); NEUTROPHILS % (AUTO) 66 % (42-75); PLATELET COUNT 234 x10^3/uL (130-400); RED BLOOD COUNT 4.47 x10^6/uL (4.38-5.82); RED CELL DISTRIBUTION WIDTH 16.8 % (9.4-14.8)
[2020-11-16 03:03] LABS: ALANINE AMINOTRANSFERASE 22 U/L (12-78); ALBUMIN 3.4 g/dL (3.4-5.0); ANION GAP 7 mmol/L (5-15); CALCIUM 8.9 mg/dL (8.5-10.1); CHLORIDE 111 mmol/L (98-107)
[2020-11-16 03:07] LABS: ALKALINE PHOSPHATASE 173 U/L (45-117); BILIRUBIN,TOTAL 0.3 mg/dL (0.2-1.0); TOTAL PROTEIN 6.6 g/dL (6.4-8.2); TROPONIN I < 0.015 ng/mL (0.000-0.045)
--- NOTE | 2020-11-16 03:49 | NUR ---
PT AMBULATING IN HALLWAYS NADN, REMINDED TO REMAIN IN ROOM
--- NOTE | 2020-11-16 04:13 | NUR ---
Patient/Caregiver given discharge instructions and they have confirmed that they understand the instructions. Patient ambulatory with steady gait. NAD, all questions answered appropriately, denies additional needs at this time. No personal belongings left in room after discharge.
== END 2020-11-16 04:14 | disposition home or self-care (01) ==
LOC: ED 04:08
DX: J44.1 Chronic obstructive pulmonary disease with (acute) exacerbation (principal); Z76.0 Encounter for issue of repeat prescription; E11.22 Type 2 diabetes mellitus with diabetic chronic kidney disease; I12.9 Hypertensive chronic kidney disease with stage 1 through stage 4 chronic kidney disease, or unspecified chronic kidney disease; N18.9 Chronic kidney disease, unspecified; E11.65 Type 2 diabetes mellitus with hyperglycemia; Z90.49 Acquired absence of other specified parts of digestive tract
CPT/HCPCS: 36415; 71045; 80053; 83880; 84484; 85025; 93005; 99285

== ENCOUNTER 2020-11-19 21:23 | Emergency (ER) | payer MEDICAID ==
[~2020-11-19] VITALS: Ht 180.3 cm; Wt 100.6 kg
[2020-11-19 21:33] VITALS: BP 138/105
--- NOTE | 2020-11-19 23:58 | NUR ---
BISQUE TILE BURNER: NIL X 1 WHEN CALLED FOR ROOM.
--- NOTE | 2020-11-20 00:15 | NUR ---
LATE ENTRY: NIL X 2 WHEN CALLED FOR ROOM.
--- NOTE | 2020-11-20 00:29 | NUR ---
COMMUNICATION SPEC: NIL X 3 WHEN CALLED FOR ROOM
== END 2020-11-20 00:31 | disposition left against medical advice (07) ==
LOC: ED 22:00
DX: J18.9 Pneumonia, unspecified organism (principal); R94.31 Abnormal electrocardiogram [ECG] [EKG]; Z53.21 Procedure and treatment not carried out due to patient leaving prior to being seen by health care provider
CPT/HCPCS: 93005

== ENCOUNTER 2020-12-26 05:39 | Emergency (ER) | payer MEDICAID ==
[~2020-12-26] VITALS: Ht 180.3 cm; Wt 99.3 kg
[2020-12-26 06:36] LABS: BASOPHILS % (AUTO) 1 % (0-1); EOSINOPHILS % (AUTO) 7 % (1-7); LYMPHOCYTES % (AUTO) 18 % (22-44); MEAN CORPUSCULAR HEMOGLOBIN 27.6 pg (27.5-34.5); MEAN CORPUSCULAR HGB CONC 34.1 g/dL (33.2-36.2); MONOCYTES % (AUTO) 7 % (2-9); NEUTROPHILS % (AUTO) 67 % (42-75); PLATELET COUNT 244 x10^3/uL (130-400); RED BLOOD COUNT 5.29 x10^6/uL (4.38-5.82); RED CELL DISTRIBUTION WIDTH 16.4 % (9.4-14.8)
[2020-12-26 06:43] LABS: ALANINE AMINOTRANSFERASE 24 U/L (12-78); ALBUMIN 3.4 g/dL (3.4-5.0); ANION GAP 8 mmol/L (5-15); CALCIUM 9.9 mg/dL (8.5-10.1); CHLORIDE 102 mmol/L (98-107); CREATININE 2.44 mg/dL (0.7-1.3)
[2020-12-26 06:47] LABS: ALKALINE PHOSPHATASE 219 U/L (45-117); BILIRUBIN,TOTAL 0.3 mg/dL (0.2-1.0); TOTAL PROTEIN 7.2 g/dL (6.4-8.2); TROPONIN I < 0.015 ng/mL (0.000-0.045)
--- NOTE | 2020-12-26 07:10 | NUR ---
ASSUMING CARE OF PT AFTER BEDSIDE REPORT. PT ASLEEP WITH EVEN AND UNLABORED RESPRIATIONS. VSS. RAMESH.
[2020-12-26 08:22] VITALS: BP 158/106
--- NOTE | 2020-12-26 08:24 | NUR ---
Patient given discharge instructions and they have confirmed that they understand the instructions. Patient ambulatory with steady gait. NAD, all questions answered appropriately, denies additional needs at this time. No personal belongings left in room after discharge.
== END 2020-12-26 08:25 | disposition home or self-care (01) ==
LOC: ED 07:10
DX: R05 Cough (principal); Z20.822 Contact with and (suspected) exposure to COVID-19; R07.89 Other chest pain; R06.02 Shortness of breath; I10 Essential (primary) hypertension; E11.9 Type 2 diabetes mellitus without complications; J44.9 Chronic obstructive pulmonary disease, unspecified
CPT/HCPCS: 71045; 80053; 83605; 83880; 84145; 84484; 85025; 93005; 99285; U0003; U0005